=== PATIENT | female | born 1935 | race Two or more races ===

== ENCOUNTER 2020-03-15 23:59 | Inpatient (IN) | payer MEDICARE, MEDICAID ==
[2020-03-16 01:30] VITALS: BP 149/65
[2020-03-16] MEDS ORDERED: HALOPERIDOL 5 MG TABLET PO PRN (02:15)
[2020-03-16] MEDS ORDERED: ZOLPIDEM TARTRATE 10 MG TABLET PO PRN (02:15)
[2020-03-16] MEDS ORDERED: LORazepam 1 MG TABLET PO PRN (02:15)
[2020-03-16] MEDS ORDERED: PNEUMOCOCCAL VACCINE POLYVALENT 0.5 ML VIAL [PPSV23] IM ONE (05:45)
[2020-03-16] MEDS ORDERED: INFLUENZA VIRUS VACCINE QVS 2020-21 (6MO+)/PF 60 MCG/0.5 ML SYRINGE IM ONE (05:45)
[2020-03-16] MEDS ORDERED: DEXTROSE 50%-WATER 25 GM/50 ML SYRINGE IVP PRN (07:45)
[2020-03-16 08:00] VITALS: BP 124/68
[2020-03-16] MEDS ORDERED: PETROLATUM,WHITE 28 GM JELLY TP PRN (08:15)
[2020-03-16] MEDS ORDERED: ALBUTEROL SULFATE HFA 90 MCG/PUFF 8 GM INHALER IH PRN (08:15)
[2020-03-16] MEDS ORDERED: MAG HYDROX/AL HYDROX/SIMETH ES 30 ML SUSPENSION UDCUP PO PRN (08:15)
[2020-03-16] MEDS ORDERED: MAGNESIUM HYDROXIDE SUSPENSION 30 ML UDCUP PO PRN (08:15)
[2020-03-16] MEDS ORDERED: CloNIDine HCL 0.1 MG TABLET PO PRN (08:15)
[2020-03-16] MEDS ORDERED: ONDANSETRON HCL 4 MG TABLET PO PRN (08:15)
[2020-03-16] MEDS ORDERED: BENZOCAINE/MENTHOL LOZENGE PO PRN (08:15)
[2020-03-16] MEDS: METOPROLOL TARTRATE 25 MG TABLET PO SCH ×2 (11:03→17:24)
[2020-03-16] MEDS: POLYETHYLENE GLYCOL 3350 17 GM PACKET PO SCH (11:07)
[2020-03-16] MEDS: MULTIVITAMINS WITH MINERALS, THERAPEUTIC TABLET PO SCH (11:08)
[2020-03-16] MEDS: PANTOPRAZOLE SODIUM 40 MG DR TABLET PO SCH (11:09)
[2020-03-16] MEDS: INSULIN LISPRO 100 UNITS/ML SQ PRN ×2 (11:41→17:27)
[2020-03-16 16:14] VITALS: BP 123/68
[2020-03-16] MEDS ORDERED: ChlorproMAZINE HCL 25 MG TABLET PO PRN (17:00)
[2020-03-16] MEDS ORDERED: TEMAZEPAM 7.5 MG CAPSULE PO PRN (17:00)
[2020-03-16 17:14] LABS: GLUCOMETER DEV NAME(LOC) 3E.I 2; GLUCOSE,POINT OF CARE 179 MG/DL (70-110)
[2020-03-16] MEDS: DIVALPROEX SODIUM 250 MG DR TABLET PO SCH ×2 (17:23→20:38)
[2020-03-16] MEDS: MEMANTINE HCL 5 MG TABLET PO SCH (17:23)
[2020-03-16] MEDS: MetFORMIN HCL 500 MG TABLET PO SCH (17:24)
[2020-03-16] MEDS: RisperiDONE 0.5 MG TABLET PO SCH ×2 (17:24→20:38)
[2020-03-16] MEDS: DONEPEZIL HCL 5 MG TABLET PO SCH (20:38)
[2020-03-16] MEDS: SENNA 187 MG TABLET PO SCH (20:38)
[2020-03-16] MEDS: SIMVASTATIN 20 MG TABLET PO SCH (20:38)
[2020-03-16 21:15] VITALS: BP 137/91
[2020-03-16 21:45] LABS: GLUCOMETER DEV NAME(LOC) 3E.I 2; GLUCOSE,POINT OF CARE 93 MG/DL (70-110)
[2020-03-16] MEDS: LORazepam 0.5 MG TABLET PO PRN (22:18)
[2020-03-16 23:15] VITALS: BP 133/76
[2020-03-17 06:27] LABS: GLUCOMETER DEV NAME(LOC) 3E.I 2; GLUCOSE,POINT OF CARE 219 MG/DL (70-110)
[2020-03-17] MEDS: LEVOTHYROXINE SODIUM 112 MCG TABLET PO SCH (07:00)
[2020-03-17] MEDS: MetFORMIN HCL 500 MG TABLET PO SCH ×2 (07:08→17:06)
[2020-03-17] MEDS: INSULIN LISPRO 100 UNITS/ML SQ PRN ×4 (07:10→19:34)
[2020-03-17 11:00] VITALS: BP 138/88
[2020-03-17 11:26] LABS: GLUCOMETER DEV NAME(LOC) 3E.I 2; GLUCOSE,POINT OF CARE 167 MG/DL (70-110)
[2020-03-17] MEDS: MULTIVITAMINS WITH MINERALS, THERAPEUTIC TABLET PO SCH (11:37)
[2020-03-17] MEDS: DIVALPROEX SODIUM 250 MG DR TABLET PO SCH ×3 (11:38→21:00)
[2020-03-17] MEDS: PANTOPRAZOLE SODIUM 40 MG DR TABLET PO SCH (11:38)
[2020-03-17] MEDS: RisperiDONE 0.5 MG TABLET PO SCH ×3 (11:38→21:00)
[2020-03-17] MEDS: POLYETHYLENE GLYCOL 3350 17 GM PACKET PO SCH (11:39)
[2020-03-17] MEDS: METOPROLOL TARTRATE 25 MG TABLET PO SCH ×2 (11:39→17:06)
[2020-03-17] MEDS: MEMANTINE HCL 5 MG TABLET PO SCH ×2 (11:40→17:06)
[2020-03-17 16:13] VITALS: BP 169/86
[2020-03-17] MEDS: SENNA 187 MG TABLET PO SCH (21:00)
[2020-03-17] MEDS: SIMVASTATIN 20 MG TABLET PO SCH (21:00)
[2020-03-17] MEDS: DONEPEZIL HCL 5 MG TABLET PO SCH (21:00)
[2020-03-17 21:05] LABS: GLUCOMETER DEV NAME(LOC) 3E.I 2; GLUCOSE,POINT OF CARE 178 MG/DL (70-110)
[2020-03-18 05:49] LABS: GLUCOMETER DEV NAME(LOC) 3E.I 2; GLUCOSE,POINT OF CARE 177 MG/DL (70-110)
[2020-03-18 06:05] VITALS: BP 141/82
[2020-03-18] MEDS: LEVOTHYROXINE SODIUM 112 MCG TABLET PO SCH (07:00)
[2020-03-18] MEDS: MetFORMIN HCL 500 MG TABLET PO SCH ×2 (07:06→17:30)
[2020-03-18] MEDS: INSULIN LISPRO 100 UNITS/ML SQ PRN ×2 (07:15→12:16)
[2020-03-18] MEDS: METOPROLOL TARTRATE 25 MG TABLET PO SCH ×2 (08:56→17:40)
[2020-03-18] MEDS: DIVALPROEX SODIUM 250 MG DR TABLET PO SCH ×2 (08:56→17:41)
[2020-03-18] MEDS: MULTIVITAMINS WITH MINERALS, THERAPEUTIC TABLET PO SCH (08:57)
[2020-03-18] MEDS: PANTOPRAZOLE SODIUM 40 MG DR TABLET PO SCH (08:57)
[2020-03-18] MEDS: POLYETHYLENE GLYCOL 3350 17 GM PACKET PO SCH ×2 (08:59→09:00)
[2020-03-18] MEDS: MEMANTINE HCL 5 MG TABLET PO SCH ×3 (08:59→17:39)
[2020-03-18] MEDS: RisperiDONE 0.5 MG TABLET PO SCH ×3 (09:00→21:00)
[2020-03-18 11:44] LABS: GLUCOMETER DEV NAME(LOC) 3E.I 2; GLUCOSE,POINT OF CARE 145 MG/DL (70-110)
[2020-03-18 16:00] VITALS: BP 156/77
[2020-03-18 17:40] LABS: GLUCOMETER DEV NAME(LOC) 3E.I 2; GLUCOSE,POINT OF CARE 136 MG/DL (70-110)
[2020-03-18] MEDS: SENNA 187 MG TABLET PO SCH (21:00)
[2020-03-18] MEDS: DONEPEZIL HCL 5 MG TABLET PO SCH (21:00)
[2020-03-18] MEDS: SIMVASTATIN 20 MG TABLET PO SCH (21:00)
[2020-03-18 21:19] LABS: GLUCOMETER DEV NAME(LOC) 3E.I 2; GLUCOSE,POINT OF CARE 113 MG/DL (70-110)
[2020-03-19] MEDS: MetFORMIN HCL 500 MG TABLET PO SCH ×3 (06:26→17:30)
[2020-03-19] MEDS: LEVOTHYROXINE SODIUM 112 MCG TABLET PO SCH (06:26)
[2020-03-19 06:38] LABS: BASOPHILS % (AUTO) 0.9 % (0.0-2.0); EOSINOPHILS % (AUTO) 1.8 % (1.0-6.0); HEMATOCRIT 37.7 % (36-46); HEMOGLOBIN 12.4 g/dL (12.0-16.0); LYMPHOCYTES # (AUTO) 1.7 K/uL (1.0-4.8); LYMPHOCYTES % (AUTO) 34.5 % (22.0-44.0); MEAN CORPUSCULAR HEMOGLOBIN 28.3 pg (26.0-34.0); MEAN CORPUSCULAR HGB CONC 32.9 G/dL (31.0-37.0); MEAN CORPUSCULAR VOLUME 86 fL (80-100); MONOCYTES # (AUTO) 0.4 K/uL (0.1-1.0); MONOCYTES % (AUTO) 8.2 % (2.0-9.0); NEUTROPHILS # (AUTO) 2.7 K/uL (1.8-7.7); NEUTROPHILS % (AUTO) 54.6 % (40.0-70.0); PLATELET COUNT (AUTO) 302 K/uL (150-450); RED BLOOD CELL COUNT(AUTO) 4.39 MIL/uL (4.00-5.20); RED CELL DISTRIBUTION WIDTH 16.8 % (11.5-14.5)
[2020-03-19 07:45] LABS: ALANINE AMINOTRANSFERASE 14 U/L (12-78); ALBUMIN 3.4 g/dL (3.4-5.0); ALKALINE PHOSPHATASE 79 U/L (46-116); ANION GAP 13 mmol/L (8-16); ASPARTATE AMINOTRANSFERASE 26 U/L (15-37); BILIRUBIN,TOTAL 0.5 mg/dL (0.1-1.0); CALCIUM, TOTAL 9.5 mg/dL (8.8-10.5); CARBON DIOXIDE 27 mmol/L (22-29); CHLORIDE 98 mmol/L (98-107); CHOL/HDL RATIO 2.3 (3.9-5.7); CHOLESTEROL 194 mg/dL (131-200); CREATININE 0.82 mg/dL (0.60-1.30); GLUCOSE,RANDOM 145 mg/dL (70-110); HDL CHOLESTEROL 84 mg/dL (40-60); HEMOGLOBIN A1C 7.1 % (3.8-5.6); LDL CHOL (CALC.) 96 mg/dL (0-130); POTASSIUM 4.3 mmol/L (3.5-5.1); SODIUM SERUM 138 mmol/L (136-145); TOTAL PROTEIN, SERUM 7.3 g/dL (6.4-8.2); TRIGLYCERIDES 68 mg/dL (15-150); UREA NITROGEN, BLOOD 19 mg/dL (7-18)
[2020-03-19 07:50] LABS: GLOMERULAR FILTR. RATE CALC > 60 mL/min (>60)
[2020-03-19 09:02] VITALS: BP 137/71
[2020-03-19] MEDS: RisperiDONE 0.5 MG TABLET PO SCH ×3 (09:16→21:00)
[2020-03-19] MEDS: PANTOPRAZOLE SODIUM 40 MG DR TABLET PO SCH (09:17)
[2020-03-19] MEDS: METOPROLOL TARTRATE 25 MG TABLET PO SCH ×2 (09:17→17:24)
[2020-03-19] MEDS: MULTIVITAMINS WITH MINERALS, THERAPEUTIC TABLET PO SCH (09:17)
[2020-03-19] MEDS: POLYETHYLENE GLYCOL 3350 17 GM PACKET PO SCH (09:18)
[2020-03-19] MEDS: MEMANTINE HCL 5 MG TABLET PO SCH ×2 (09:18→17:24)
[2020-03-19] MEDS: VALPROIC ACID 250 MG/5 ML SYRUP UDCUP PO SCH ×2 (09:27→17:25)
[2020-03-19 11:38] LABS: GLUCOMETER DEV NAME(LOC) 3E.I 2; GLUCOSE,POINT OF CARE 118 MG/DL (70-110)
[2020-03-19] MEDS: LOPERAMIDE HCL 2 MG CAPSULE PO PRN (13:39)
[2020-03-19] MEDS: SIMVASTATIN 20 MG TABLET PO SCH (21:00)
[2020-03-19] MEDS: SENNA 187 MG TABLET PO SCH (21:00)
[2020-03-19] MEDS: DONEPEZIL HCL 5 MG TABLET PO SCH (21:00)
[2020-03-19 21:07] LABS: GLUCOMETER DEV NAME(LOC) 3E.I 2; GLUCOSE,POINT OF CARE 210 MG/DL (70-110)
[2020-03-20] MEDS: MetFORMIN HCL 500 MG TABLET PO SCH ×2 (06:47→17:25)
[2020-03-20] MEDS: LEVOTHYROXINE SODIUM 112 MCG TABLET PO SCH (06:47)
[2020-03-20] MEDS: METOPROLOL TARTRATE 25 MG TABLET PO SCH ×2 (09:45→16:01)
[2020-03-20] MEDS: VALPROIC ACID 250 MG/5 ML SYRUP UDCUP PO SCH ×2 (09:45→16:01)
[2020-03-20] MEDS: MEMANTINE HCL 5 MG TABLET PO SCH ×2 (09:45→16:02)
[2020-03-20] MEDS: MULTIVITAMINS WITH MINERALS, THERAPEUTIC TABLET PO SCH (09:45)
[2020-03-20] MEDS: RisperiDONE 0.5 MG TABLET PO SCH ×3 (09:45→21:08)
[2020-03-20] MEDS: PANTOPRAZOLE SODIUM 40 MG DR TABLET PO SCH (09:45)
[2020-03-20] MEDS: POLYETHYLENE GLYCOL 3350 17 GM PACKET PO SCH (09:47)
[2020-03-20 16:19] LABS: GLUCOMETER DEV NAME(LOC) 3E.I 2; GLUCOSE,POINT OF CARE 141 MG/DL (70-110)
[2020-03-20 16:33] VITALS: BP 153/70
[2020-03-20 16:36] VITALS: BP 153/70
[2020-03-20] MEDS: INSULIN LISPRO 100 UNITS/ML SQ PRN (17:31)
[2020-03-20] MEDS: DONEPEZIL HCL 5 MG TABLET PO SCH (21:08)
[2020-03-20] MEDS: SIMVASTATIN 20 MG TABLET PO SCH (21:09)
[2020-03-20] MEDS: SENNA 187 MG TABLET PO SCH (21:09)
[2020-03-20 21:17] LABS: GLUCOMETER DEV NAME(LOC) 3E.I 2; GLUCOSE,POINT OF CARE 127 MG/DL (70-110)
[2020-03-21] MEDS: MetFORMIN HCL 500 MG TABLET PO SCH ×2 (06:21→17:30)
[2020-03-21] MEDS: LEVOTHYROXINE SODIUM 112 MCG TABLET PO SCH (06:22)
[2020-03-21 08:12] VITALS: BP 147/78
[2020-03-21] MEDS: RisperiDONE 0.5 MG TABLET PO SCH ×3 (08:50→19:56)
[2020-03-21] MEDS: MULTIVITAMINS WITH MINERALS, THERAPEUTIC TABLET PO SCH (08:50)
[2020-03-21] MEDS: PANTOPRAZOLE SODIUM 40 MG DR TABLET PO SCH (08:50)
[2020-03-21] MEDS: VALPROIC ACID 250 MG/5 ML SYRUP UDCUP PO SCH ×2 (08:51→16:03)
[2020-03-21] MEDS: METOPROLOL TARTRATE 25 MG TABLET PO SCH ×2 (08:51→16:08)
[2020-03-21] MEDS: MEMANTINE HCL 5 MG TABLET PO SCH ×2 (08:51→16:02)
[2020-03-21] MEDS: POLYETHYLENE GLYCOL 3350 17 GM PACKET PO SCH (09:00)
[2020-03-21 11:03] LABS: GLUCOMETER DEV NAME(LOC) 3E.I 2; GLUCOSE,POINT OF CARE 257 MG/DL (70-110)
[2020-03-21] MEDS: INSULIN LISPRO 100 UNITS/ML SQ PRN ×3 (11:12→17:19)
[2020-03-21 16:24] VITALS: BP 111/65
[2020-03-21 17:19] LABS: GLUCOMETER DEV NAME(LOC) 3E.I 2; GLUCOSE,POINT OF CARE 164 MG/DL (70-110)
[2020-03-21] MEDS: SIMVASTATIN 20 MG TABLET PO SCH (19:56)
[2020-03-21] MEDS: SENNA 187 MG TABLET PO SCH (19:56)
[2020-03-21] MEDS: DONEPEZIL HCL 5 MG TABLET PO SCH (19:57)
[2020-03-22 05:51] LABS: GLUCOMETER DEV NAME(LOC) 3E.I 2; GLUCOSE,POINT OF CARE 151 MG/DL (70-110)
[2020-03-22] MEDS: MetFORMIN HCL 500 MG TABLET PO SCH ×2 (06:57→17:03)
[2020-03-22] MEDS: LEVOTHYROXINE SODIUM 112 MCG TABLET PO SCH (06:57)
[2020-03-22] MEDS: INSULIN LISPRO 100 UNITS/ML SQ PRN ×4 (07:03→21:02)
[2020-03-22 08:53] VITALS: BP 138/58
[2020-03-22] MEDS: POLYETHYLENE GLYCOL 3350 17 GM PACKET PO SCH (10:22)
[2020-03-22] MEDS: VALPROIC ACID 250 MG/5 ML SYRUP UDCUP PO SCH ×2 (10:22→17:03)
[2020-03-22] MEDS: RisperiDONE 0.5 MG TABLET PO SCH ×3 (10:23→20:41)
[2020-03-22] MEDS: MEMANTINE HCL 5 MG TABLET PO SCH ×2 (10:24→17:04)
[2020-03-22] MEDS: PANTOPRAZOLE SODIUM 40 MG DR TABLET PO SCH (10:24)
[2020-03-22] MEDS: METOPROLOL TARTRATE 25 MG TABLET PO SCH ×2 (10:25→17:04)
[2020-03-22] MEDS: MULTIVITAMINS WITH MINERALS, THERAPEUTIC TABLET PO SCH (10:25)
[2020-03-22 11:31] LABS: GLUCOMETER DEV NAME(LOC) 3E.I 2; GLUCOSE,POINT OF CARE 243 MG/DL (70-110)
[2020-03-22 16:35] VITALS: BP 136/73
[2020-03-22 16:49] LABS: GLUCOMETER DEV NAME(LOC) 3E.I 2; GLUCOSE,POINT OF CARE 279 MG/DL (70-110)
[2020-03-22] MEDS: SIMVASTATIN 20 MG TABLET PO SCH (20:40)
[2020-03-22] MEDS: DONEPEZIL HCL 5 MG TABLET PO SCH (20:40)
[2020-03-22] MEDS: SENNA 187 MG TABLET PO SCH (21:00)
[2020-03-22 21:10] LABS: GLUCOMETER DEV NAME(LOC) 3E.I 2; GLUCOSE,POINT OF CARE 149 MG/DL (70-110)
[2020-03-23 05:34] LABS: GLUCOMETER DEV NAME(LOC) 3E.I 2; GLUCOSE,POINT OF CARE 184 MG/DL (70-110)
[2020-03-23] MEDS: LEVOTHYROXINE SODIUM 112 MCG TABLET PO SCH (06:49)
[2020-03-23] MEDS: MetFORMIN HCL 500 MG TABLET PO SCH ×2 (06:49→16:43)
[2020-03-23] MEDS: INSULIN LISPRO 100 UNITS/ML SQ PRN ×3 (06:54→21:31)
[2020-03-23] MEDS: RisperiDONE 0.5 MG TABLET PO SCH ×3 (09:00→20:30)
[2020-03-23] MEDS: VALPROIC ACID 250 MG/5 ML SYRUP UDCUP PO SCH ×2 (09:00→16:42)
[2020-03-23] MEDS: METOPROLOL TARTRATE 25 MG TABLET PO SCH ×2 (09:00→16:42)
[2020-03-23] MEDS: MEMANTINE HCL 5 MG TABLET PO SCH ×2 (09:00→16:42)
[2020-03-23] MEDS: POLYETHYLENE GLYCOL 3350 17 GM PACKET PO SCH (09:00)
[2020-03-23] MEDS: PANTOPRAZOLE SODIUM 40 MG DR TABLET PO SCH (09:00)
[2020-03-23] MEDS: MULTIVITAMINS WITH MINERALS, THERAPEUTIC TABLET PO SCH (09:00)
[2020-03-23 10:08] VITALS: BP 125/55
[2020-03-23 11:58] LABS: GLUCOMETER DEV NAME(LOC) 3E.I 2; GLUCOSE,POINT OF CARE 253 MG/DL (70-110)
[2020-03-23 16:08] VITALS: BP 145/66
[2020-03-23 16:32] LABS: GLUCOMETER DEV NAME(LOC) 3E.I 2; GLUCOSE,POINT OF CARE 103 MG/DL (70-110)
[2020-03-23] MEDS: LOPERAMIDE HCL 2 MG CAPSULE PO PRN (18:50)
[2020-03-23] MEDS: SENNA 187 MG TABLET PO SCH (20:29)
[2020-03-23] MEDS: SIMVASTATIN 20 MG TABLET PO SCH (20:30)
[2020-03-23] MEDS: DONEPEZIL HCL 5 MG TABLET PO SCH (20:30)
[2020-03-23 21:22] LABS: GLUCOMETER DEV NAME(LOC) 3E.I 2; GLUCOSE,POINT OF CARE 248 MG/DL (70-110)
[2020-03-24 05:33] LABS: GLUCOMETER DEV NAME(LOC) 3E.I 2; GLUCOSE,POINT OF CARE 154 MG/DL (70-110)
[2020-03-24] MEDS: LEVOTHYROXINE SODIUM 112 MCG TABLET PO SCH (06:40)
[2020-03-24] MEDS: MetFORMIN HCL 500 MG TABLET PO SCH ×2 (06:40→16:23)
[2020-03-24] MEDS: INSULIN LISPRO 100 UNITS/ML SQ PRN ×4 (06:41→21:05)
[2020-03-24 10:37] VITALS: BP 140/69
[2020-03-24] MEDS: METOPROLOL TARTRATE 25 MG TABLET PO SCH ×2 (13:39→16:24)
[2020-03-24] MEDS: PANTOPRAZOLE SODIUM 40 MG DR TABLET PO SCH (13:39)
[2020-03-24] MEDS: VALPROIC ACID 250 MG/5 ML SYRUP UDCUP PO SCH ×2 (13:39→16:24)
[2020-03-24] MEDS: MULTIVITAMINS WITH MINERALS, THERAPEUTIC TABLET PO SCH (13:39)
[2020-03-24] MEDS: RisperiDONE 0.5 MG TABLET PO SCH ×3 (13:39→20:17)
[2020-03-24] MEDS: MEMANTINE HCL 5 MG TABLET PO SCH ×2 (13:40→16:24)
[2020-03-24] MEDS: POLYETHYLENE GLYCOL 3350 17 GM PACKET PO SCH (13:40)
[2020-03-24 13:54] LABS: GLUCOMETER DEV NAME(LOC) 3E.I 2; GLUCOSE,POINT OF CARE 150 MG/DL (70-110)
[2020-03-24] MEDS: BACITRACIN 28 GM OINTMENT TP PRN (16:01)
[2020-03-24] MEDS: LOPERAMIDE HCL 2 MG CAPSULE PO PRN ×2 (16:42→19:04)
[2020-03-24 17:10] VITALS: BP 112/67
[2020-03-24 17:27] LABS: GLUCOMETER DEV NAME(LOC) 3E.I 2; GLUCOSE,POINT OF CARE 287 MG/DL (70-110)
[2020-03-24] MEDS: DONEPEZIL HCL 5 MG TABLET PO SCH (20:15)
[2020-03-24] MEDS: SIMVASTATIN 20 MG TABLET PO SCH (20:15)
[2020-03-24] MEDS: SENNA 187 MG TABLET PO SCH (20:18)
[2020-03-24 21:13] LABS: GLUCOMETER DEV NAME(LOC) 3E.I 2; GLUCOSE,POINT OF CARE 252 MG/DL (70-110)
[2020-03-24] MEDS: ZALEPLON 5 MG CAPSULE PO PRN (23:47)
[2020-03-25] MEDS: MetFORMIN HCL 500 MG TABLET PO SCH ×2 (07:03→17:23)
[2020-03-25] MEDS: LEVOTHYROXINE SODIUM 112 MCG TABLET PO SCH (07:03)
[2020-03-25] MEDS: POLYETHYLENE GLYCOL 3350 17 GM PACKET PO SCH (09:11)
[2020-03-25] MEDS: MEMANTINE HCL 5 MG TABLET PO SCH ×2 (09:11→17:22)
[2020-03-25] MEDS: BACITRACIN 28 GM OINTMENT TP PRN (09:11)
[2020-03-25] MEDS: PANTOPRAZOLE SODIUM 40 MG DR TABLET PO SCH (09:11)
[2020-03-25] MEDS: RisperiDONE 0.5 MG TABLET PO SCH ×3 (09:12→20:31)
[2020-03-25] MEDS: VALPROIC ACID 250 MG/5 ML SYRUP UDCUP PO SCH ×2 (09:12→17:21)
[2020-03-25] MEDS: MULTIVITAMINS WITH MINERALS, THERAPEUTIC TABLET PO SCH (09:13)
[2020-03-25] MEDS: METOPROLOL TARTRATE 25 MG TABLET PO SCH ×2 (09:14→17:22)
[2020-03-25 09:30] VITALS: BP 121/60
[2020-03-25 11:49] LABS: GLUCOMETER DEV NAME(LOC) 3EX.; GLUCOSE,POINT OF CARE 231 MG/DL (70-110)
[2020-03-25] MEDS: INSULIN LISPRO 100 UNITS/ML SQ PRN ×3 (11:56→20:57)
[2020-03-25 16:12] VITALS: BP 110/69
[2020-03-25 17:47] LABS: GLUCOMETER DEV NAME(LOC) 3E.I 2; GLUCOSE,POINT OF CARE 180 MG/DL (70-110)
[2020-03-25 18:53] LABS: COVID AG,FIA SOURCE NASAL SWAB
[2020-03-25] MEDS: SIMVASTATIN 20 MG TABLET PO SCH (20:31)
[2020-03-25] MEDS: DONEPEZIL HCL 5 MG TABLET PO SCH (20:31)
[2020-03-25] MEDS: SENNA 187 MG TABLET PO SCH (21:00)
[2020-03-25 21:42] LABS: GLUCOMETER DEV NAME(LOC) 3E.I 2; GLUCOSE,POINT OF CARE 211 MG/DL (70-110)
[2020-03-26 00:35] VITALS: BP 140/76
[2020-03-26] MEDS: LORazepam 0.5 MG TABLET PO PRN (00:39)
[2020-03-26 06:24] VITALS: BP 136/80
[2020-03-26 06:24] LABS: GLUCOMETER DEV NAME(LOC) 3E.I 2; GLUCOSE,POINT OF CARE 164 MG/DL (70-110)
[2020-03-26] MEDS: LEVOTHYROXINE SODIUM 112 MCG TABLET PO SCH (06:53)
[2020-03-26] MEDS: MetFORMIN HCL 500 MG TABLET PO SCH ×2 (06:53→17:13)
[2020-03-26] MEDS: INSULIN LISPRO 100 UNITS/ML SQ PRN ×3 (06:54→21:41)
[2020-03-26 09:00] VITALS: BP 126/67
[2020-03-26] MEDS: MULTIVITAMINS WITH MINERALS, THERAPEUTIC TABLET PO SCH (11:50)
[2020-03-26] MEDS: PANTOPRAZOLE SODIUM 40 MG DR TABLET PO SCH (11:51)
[2020-03-26] MEDS: RisperiDONE 0.5 MG TABLET PO SCH ×3 (11:51→21:20)
[2020-03-26] MEDS: VALPROIC ACID 250 MG/5 ML SYRUP UDCUP PO SCH ×2 (11:52→17:12)
[2020-03-26] MEDS: SIMVASTATIN 20 MG TABLET PO SCH ×2 (11:53→21:19)
[2020-03-26] MEDS: MEMANTINE HCL 5 MG TABLET PO SCH ×2 (11:54→17:13)
[2020-03-26] MEDS: POLYETHYLENE GLYCOL 3350 17 GM PACKET PO SCH (11:54)
[2020-03-26 12:00] LABS: GLUCOMETER DEV NAME(LOC) 3EX.; GLUCOSE,POINT OF CARE 230 MG/DL (70-110)
[2020-03-26] MEDS: METOPROLOL TARTRATE 25 MG TABLET PO SCH ×2 (12:04→17:24)
[2020-03-26] MEDS: SENNA 187 MG TABLET PO SCH (21:00)
[2020-03-26] MEDS: DONEPEZIL HCL 5 MG TABLET PO SCH (21:19)
[2020-03-26 21:33] LABS: GLUCOMETER DEV NAME(LOC) 3E.I 2; GLUCOSE,POINT OF CARE 124 MG/DL (70-110)
[2020-03-26 21:39] LABS: GLUCOMETER DEV NAME(LOC) 3E.I 2; GLUCOSE,POINT OF CARE 212 MG/DL (70-110)
[2020-03-27 06:33] LABS: GLUCOMETER DEV NAME(LOC) 3E.I 2; GLUCOSE,POINT OF CARE 169 MG/DL (70-110)
[2020-03-27] MEDS: LEVOTHYROXINE SODIUM 112 MCG TABLET PO SCH (06:57)
[2020-03-27] MEDS: MetFORMIN HCL 500 MG TABLET PO SCH ×2 (06:57→16:45)
[2020-03-27] MEDS: INSULIN LISPRO 100 UNITS/ML SQ PRN ×3 (07:00→17:30)
[2020-03-27] MEDS: POLYETHYLENE GLYCOL 3350 17 GM PACKET PO SCH (09:00)
[2020-03-27] MEDS: METOPROLOL TARTRATE 25 MG TABLET PO SCH ×2 (09:00→17:06)
[2020-03-27] MEDS: RisperiDONE 0.5 MG TABLET PO SCH ×4 (11:25→20:15)
[2020-03-27] MEDS: MEMANTINE HCL 5 MG TABLET PO SCH ×2 (11:25→16:45)
[2020-03-27] MEDS: VALPROIC ACID 250 MG/5 ML SYRUP UDCUP PO SCH ×2 (11:26→16:45)
[2020-03-27] MEDS: MULTIVITAMINS WITH MINERALS, THERAPEUTIC TABLET PO SCH (11:26)
[2020-03-27] MEDS: PANTOPRAZOLE SODIUM 40 MG DR TABLET PO SCH (11:26)
[2020-03-27 11:35] LABS: GLUCOMETER DEV NAME(LOC) 3E.I 2; GLUCOSE,POINT OF CARE 145 MG/DL (70-110)
[2020-03-27 16:13] VITALS: BP 117/76
[2020-03-27 17:18] LABS: GLUCOMETER DEV NAME(LOC) 3E.I 2; GLUCOSE,POINT OF CARE 224 MG/DL (70-110)
[2020-03-27] MEDS: LOPERAMIDE HCL 2 MG CAPSULE PO PRN ×2 (18:07→22:16)
[2020-03-27] MEDS: DONEPEZIL HCL 5 MG TABLET PO SCH (20:14)
[2020-03-27] MEDS: SIMVASTATIN 20 MG TABLET PO SCH (20:14)
[2020-03-27] MEDS: SENNA 187 MG TABLET PO SCH (20:15)
[2020-03-27 20:20] LABS: GLUCOMETER DEV NAME(LOC) 3E.I 2; GLUCOSE,POINT OF CARE 101 MG/DL (70-110)
[2020-03-27] MEDS: ZALEPLON 5 MG CAPSULE PO PRN (23:51)
[2020-03-27] MEDS: LORazepam 0.5 MG TABLET PO PRN (23:51)
[2020-03-28] MEDS: LEVOTHYROXINE SODIUM 112 MCG TABLET PO SCH (07:06)
[2020-03-28] MEDS: MetFORMIN HCL 500 MG TABLET PO SCH ×2 (07:06→17:19)
[2020-03-28] MEDS: METOPROLOL TARTRATE 25 MG TABLET PO SCH ×2 (08:23→15:54)
[2020-03-28] MEDS: RisperiDONE 0.5 MG TABLET PO SCH ×4 (08:23→20:05)
[2020-03-28] MEDS: MEMANTINE HCL 5 MG TABLET PO SCH ×2 (08:23→15:54)
[2020-03-28] MEDS: VALPROIC ACID 250 MG/5 ML SYRUP UDCUP PO SCH ×2 (08:23→15:53)
[2020-03-28] MEDS: POLYETHYLENE GLYCOL 3350 17 GM PACKET PO SCH (08:24)
[2020-03-28] MEDS: MULTIVITAMINS WITH MINERALS, THERAPEUTIC TABLET PO SCH (08:25)
[2020-03-28] MEDS: LORazepam 0.5 MG TABLET PO PRN (08:27)
[2020-03-28] MEDS: PANTOPRAZOLE SODIUM 40 MG DR TABLET PO SCH (08:27)
[2020-03-28 08:36] VITALS: BP 114/65
[2020-03-28 12:45] LABS: GLUCOMETER DEV NAME(LOC) 3E.I 2; GLUCOSE,POINT OF CARE 204 MG/DL (70-110)
[2020-03-28] MEDS: INSULIN LISPRO 100 UNITS/ML SQ PRN ×2 (12:54→21:15)
[2020-03-28 16:13] VITALS: BP 112/82
[2020-03-28 16:13] LABS: GLUCOMETER DEV NAME(LOC) 3E.I 2; GLUCOSE,POINT OF CARE 136 MG/DL (70-110)
[2020-03-28] MEDS: DONEPEZIL HCL 5 MG TABLET PO SCH (20:05)
[2020-03-28] MEDS: SENNA 187 MG TABLET PO SCH (20:05)
[2020-03-28] MEDS: SIMVASTATIN 20 MG TABLET PO SCH (20:05)
[2020-03-28 21:36] LABS: GLUCOMETER DEV NAME(LOC) 3E.I 2; GLUCOSE,POINT OF CARE 168 MG/DL (70-110)
[2020-03-29 05:45] LABS: GLUCOMETER DEV NAME(LOC) 3E.I 2; GLUCOSE,POINT OF CARE 138 MG/DL (70-110)
[2020-03-29] MEDS: MetFORMIN HCL 500 MG TABLET PO SCH ×2 (07:05→17:21)
[2020-03-29] MEDS: LEVOTHYROXINE SODIUM 112 MCG TABLET PO SCH (07:05)
[2020-03-29 08:21] VITALS: BP 126/86
[2020-03-29] MEDS: MEMANTINE HCL 5 MG TABLET PO SCH ×2 (09:00→17:21)
[2020-03-29] MEDS: PANTOPRAZOLE SODIUM 40 MG DR TABLET PO SCH (09:00)
[2020-03-29] MEDS: MULTIVITAMINS WITH MINERALS, THERAPEUTIC TABLET PO SCH (09:00)
[2020-03-29] MEDS: RisperiDONE 0.5 MG TABLET PO SCH ×4 (09:00→20:59)
[2020-03-29] MEDS: POLYETHYLENE GLYCOL 3350 17 GM PACKET PO SCH (09:00)
[2020-03-29] MEDS: VALPROIC ACID 250 MG/5 ML SYRUP UDCUP PO SCH ×2 (09:00→17:21)
[2020-03-29] MEDS: METOPROLOL TARTRATE 25 MG TABLET PO SCH ×2 (09:00→17:21)
[2020-03-29 11:55] LABS: GLUCOMETER DEV NAME(LOC) 3E.I 2; GLUCOSE,POINT OF CARE 131 MG/DL (70-110)
[2020-03-29 16:04] VITALS: BP 131/80
[2020-03-29] MEDS: INSULIN LISPRO 100 UNITS/ML SQ PRN ×2 (17:28→21:30)
[2020-03-29 17:30] LABS: GLUCOMETER DEV NAME(LOC) 3E.I 2; GLUCOSE,POINT OF CARE 152 MG/DL (70-110)
[2020-03-29] MEDS: SENNA 187 MG TABLET PO SCH (20:59)
[2020-03-29] MEDS: SIMVASTATIN 20 MG TABLET PO SCH (20:59)
[2020-03-29] MEDS: DONEPEZIL HCL 5 MG TABLET PO SCH (20:59)
[2020-03-29 21:26] LABS: GLUCOMETER DEV NAME(LOC) 3E.I 2; GLUCOSE,POINT OF CARE 245 MG/DL (70-110)
[2020-03-30 00:04] VITALS: BP 125/68
[2020-03-30] MEDS: ZALEPLON 5 MG CAPSULE PO PRN (00:08)
[2020-03-30] MEDS: LORazepam 0.5 MG TABLET PO PRN (00:09)
[2020-03-30] MEDS: MetFORMIN HCL 500 MG TABLET PO SCH ×2 (07:01→16:49)
[2020-03-30] MEDS: LEVOTHYROXINE SODIUM 112 MCG TABLET PO SCH (07:01)
[2020-03-30] MEDS: VALPROIC ACID 250 MG/5 ML SYRUP UDCUP PO SCH ×2 (08:49→16:49)
[2020-03-30] MEDS: RisperiDONE 0.5 MG TABLET PO SCH ×4 (08:50→20:50)
[2020-03-30] MEDS: MULTIVITAMINS WITH MINERALS, THERAPEUTIC TABLET PO SCH (08:51)
[2020-03-30] MEDS: PANTOPRAZOLE SODIUM 40 MG DR TABLET PO SCH (08:51)
[2020-03-30] MEDS: METOPROLOL TARTRATE 25 MG TABLET PO SCH ×2 (08:51→16:50)
[2020-03-30] MEDS: MEMANTINE HCL 5 MG TABLET PO SCH ×2 (08:51→16:50)
[2020-03-30] MEDS: POLYETHYLENE GLYCOL 3350 17 GM PACKET PO SCH (09:00)
[2020-03-30 09:27] VITALS: BP 128/72
[2020-03-30] MEDS: INSULIN LISPRO 100 UNITS/ML SQ PRN ×2 (11:30→21:48)
[2020-03-30 12:15] LABS: GLUCOMETER DEV NAME(LOC) 3E.I 2; GLUCOSE,POINT OF CARE 306 MG/DL (70-110)
[2020-03-30 16:16] VITALS: BP 118/77
[2020-03-30 16:33] LABS: GLUCOMETER DEV NAME(LOC) 3E.I 2; GLUCOSE,POINT OF CARE 102 MG/DL (70-110)
[2020-03-30 20:45] LABS: GLUCOMETER DEV NAME(LOC) 3E.I 2; GLUCOSE,POINT OF CARE 145 MG/DL (70-110)
[2020-03-30] MEDS: SIMVASTATIN 20 MG TABLET PO SCH (20:50)
[2020-03-30] MEDS: DONEPEZIL HCL 5 MG TABLET PO SCH (20:50)
[2020-03-30] MEDS: SENNA 187 MG TABLET PO SCH (20:51)
[2020-03-31] MEDS: LORazepam 0.5 MG TABLET PO PRN (00:13)
[2020-03-31] MEDS: ZALEPLON 5 MG CAPSULE PO PRN (00:13)
[2020-03-31 06:06] LABS: GLUCOMETER DEV NAME(LOC) 3E.I 2; GLUCOSE,POINT OF CARE 116 MG/DL (70-110)
[2020-03-31] MEDS: MetFORMIN HCL 500 MG TABLET PO SCH ×2 (06:31→16:24)
[2020-03-31] MEDS: LEVOTHYROXINE SODIUM 112 MCG TABLET PO SCH (06:31)
[2020-03-31 08:15] VITALS: BP 134/82
[2020-03-31] MEDS: MULTIVITAMINS WITH MINERALS, THERAPEUTIC TABLET PO SCH (11:10)
[2020-03-31] MEDS: PANTOPRAZOLE SODIUM 40 MG DR TABLET PO SCH (11:11)
[2020-03-31] MEDS: RisperiDONE 0.5 MG TABLET PO SCH ×4 (11:11→21:32)
[2020-03-31] MEDS: POLYETHYLENE GLYCOL 3350 17 GM PACKET PO SCH (11:12)
[2020-03-31] MEDS: MEMANTINE HCL 5 MG TABLET PO SCH ×2 (11:12→16:24)
[2020-03-31] MEDS: VALPROIC ACID 250 MG/5 ML SYRUP UDCUP PO SCH ×2 (11:12→16:24)
[2020-03-31] MEDS: METOPROLOL TARTRATE 25 MG TABLET PO SCH ×2 (11:13→16:24)
[2020-03-31 11:45] LABS: GLUCOMETER DEV NAME(LOC) 3E.I 2; GLUCOSE,POINT OF CARE 143 MG/DL (70-110)
[2020-03-31] MEDS: INSULIN LISPRO 100 UNITS/ML SQ PRN ×2 (11:54→21:55)
[2020-03-31 16:58] VITALS: BP 105/55
[2020-03-31 17:01] LABS: GLUCOMETER DEV NAME(LOC) 3E.I 2; GLUCOSE,POINT OF CARE 131 MG/DL (70-110)
[2020-03-31] MEDS: SENNA 187 MG TABLET PO SCH (21:00)
[2020-03-31] MEDS: DONEPEZIL HCL 5 MG TABLET PO SCH (21:32)
[2020-03-31] MEDS: SIMVASTATIN 20 MG TABLET PO SCH (21:32)
[2020-03-31 22:02] LABS: GLUCOMETER DEV NAME(LOC) 3E.I 2; GLUCOSE,POINT OF CARE 165 MG/DL (70-110)
[2020-04-01] MEDS: ZALEPLON 5 MG CAPSULE PO PRN (01:08)
[2020-04-01] MEDS: LORazepam 0.5 MG TABLET PO PRN (01:08)
[2020-04-01 06:02] LABS: GLUCOMETER DEV NAME(LOC) 3E.I 2; GLUCOSE,POINT OF CARE 103 MG/DL (70-110)
[2020-04-01] MEDS: MetFORMIN HCL 500 MG TABLET PO SCH ×2 (06:42→17:09)
[2020-04-01] MEDS: LEVOTHYROXINE SODIUM 112 MCG TABLET PO SCH (06:42)
[2020-04-01 08:45] VITALS: BP 142/88
[2020-04-01] MEDS: VALPROIC ACID 250 MG/5 ML SYRUP UDCUP PO SCH ×2 (09:03→17:07)
[2020-04-01] MEDS: METOPROLOL TARTRATE 25 MG TABLET PO SCH ×2 (09:04→17:08)
[2020-04-01] MEDS: PANTOPRAZOLE SODIUM 40 MG DR TABLET PO SCH (09:04)
[2020-04-01] MEDS: POLYETHYLENE GLYCOL 3350 17 GM PACKET PO SCH (09:04)
[2020-04-01] MEDS: RisperiDONE 0.5 MG TABLET PO SCH ×4 (09:04→20:12)
[2020-04-01] MEDS: MULTIVITAMINS WITH MINERALS, THERAPEUTIC TABLET PO SCH (09:05)
[2020-04-01] MEDS: MEMANTINE HCL 5 MG TABLET PO SCH ×2 (09:05→17:08)
[2020-04-01 16:40] VITALS: BP 115/69
[2020-04-01] MEDS: INSULIN LISPRO 100 UNITS/ML SQ PRN ×2 (17:28→21:41)
[2020-04-01 17:31] LABS: GLUCOMETER DEV NAME(LOC) 3E.I 2; GLUCOSE,POINT OF CARE 145 MG/DL (70-110)
[2020-04-01] MEDS: SIMVASTATIN 20 MG TABLET PO SCH (20:12)
[2020-04-01] MEDS: DONEPEZIL HCL 5 MG TABLET PO SCH (20:12)
[2020-04-01 20:26] LABS: GLUCOMETER DEV NAME(LOC) 3E.I 2; GLUCOSE,POINT OF CARE 145 MG/DL (70-110)
[2020-04-01] MEDS: SENNA 187 MG TABLET PO SCH (21:00)
[2020-04-02] MEDS: LORazepam 0.5 MG TABLET PO PRN (02:02)
[2020-04-02] MEDS: ZALEPLON 5 MG CAPSULE PO PRN ×2 (02:02→21:44)
[2020-04-02 06:26] LABS: GLUCOMETER DEV NAME(LOC) 3E.I 2; GLUCOSE,POINT OF CARE 105 MG/DL (70-110)
[2020-04-02] MEDS: MetFORMIN HCL 500 MG TABLET PO SCH ×2 (07:01→16:27)
[2020-04-02] MEDS: LEVOTHYROXINE SODIUM 112 MCG TABLET PO SCH (07:01)
[2020-04-02] MEDS: VALPROIC ACID 250 MG/5 ML SYRUP UDCUP PO SCH ×2 (08:48→16:29)
[2020-04-02] MEDS: POLYETHYLENE GLYCOL 3350 17 GM PACKET PO SCH (08:48)
[2020-04-02] MEDS: METOPROLOL TARTRATE 25 MG TABLET PO SCH ×2 (08:48→16:26)
[2020-04-02] MEDS: MEMANTINE HCL 5 MG TABLET PO SCH ×2 (08:49→16:28)
[2020-04-02 08:50] VITALS: BP 124/59
[2020-04-02] MEDS: PANTOPRAZOLE SODIUM 40 MG DR TABLET PO SCH (08:50)
[2020-04-02] MEDS: MULTIVITAMINS WITH MINERALS, THERAPEUTIC TABLET PO SCH (08:50)
[2020-04-02] MEDS: RisperiDONE 0.5 MG TABLET PO SCH ×4 (08:50→20:21)
[2020-04-02] MEDS: INSULIN LISPRO 100 UNITS/ML SQ PRN ×2 (11:48→20:51)
[2020-04-02 11:50] LABS: GLUCOMETER DEV NAME(LOC) 3EX.; GLUCOSE,POINT OF CARE 182 MG/DL (70-110)
[2020-04-02 16:49] VITALS: BP 110/60
[2020-04-02 16:50] LABS: GLUCOMETER DEV NAME(LOC) 3EX.; GLUCOSE,POINT OF CARE 116 MG/DL (70-110)
[2020-04-02] MEDS: SIMVASTATIN 20 MG TABLET PO SCH (20:20)
[2020-04-02] MEDS: DONEPEZIL HCL 5 MG TABLET PO SCH (20:20)
[2020-04-02] MEDS: SENNA 187 MG TABLET PO SCH (20:37)
[2020-04-02 20:38] LABS: GLUCOMETER DEV NAME(LOC) 3EX.; GLUCOSE,POINT OF CARE 174 MG/DL (70-110)
[2020-04-02] MEDS ORDERED: SIMVASTATIN 20 MG TABLET PO PRN (21:30)
[2020-04-02] MEDS ORDERED: SENNA 187 MG TABLET PO PRN (21:45)
[2020-04-03] MEDS: LORazepam 0.5 MG TABLET PO PRN ×2 (00:25→23:53)
[2020-04-03] MEDS: LEVOTHYROXINE SODIUM 112 MCG TABLET PO SCH (07:01)
[2020-04-03] MEDS: MetFORMIN HCL 500 MG TABLET PO SCH ×2 (07:22→17:30)
[2020-04-03 08:10] VITALS: BP 122/79
[2020-04-03] MEDS: MULTIVITAMINS WITH MINERALS, THERAPEUTIC TABLET PO SCH (09:00)
[2020-04-03] MEDS: METOPROLOL TARTRATE 25 MG TABLET PO SCH ×2 (09:31→16:12)
[2020-04-03] MEDS: VALPROIC ACID 250 MG/5 ML SYRUP UDCUP PO SCH ×2 (09:31→16:12)
[2020-04-03] MEDS: POLYETHYLENE GLYCOL 3350 17 GM PACKET PO SCH (09:31)
[2020-04-03] MEDS: RisperiDONE 0.5 MG TABLET PO SCH ×4 (09:32→20:57)
[2020-04-03] MEDS: MEMANTINE HCL 5 MG TABLET PO SCH ×2 (09:32→16:12)
[2020-04-03] MEDS: PANTOPRAZOLE SODIUM 40 MG DR TABLET PO SCH (09:33)
[2020-04-03 11:15] LABS: GLUCOMETER DEV NAME(LOC) 3EX.; GLUCOSE,POINT OF CARE 152 MG/DL (70-110)
[2020-04-03] MEDS: INSULIN LISPRO 100 UNITS/ML SQ PRN ×3 (11:17→21:10)
[2020-04-03 16:54] LABS: GLUCOMETER DEV NAME(LOC) 3E.I 2; GLUCOSE,POINT OF CARE 185 MG/DL (70-110)
[2020-04-03] MEDS: SIMVASTATIN 20 MG TABLET PO SCH (20:57)
[2020-04-03] MEDS: ZALEPLON 5 MG CAPSULE PO PRN (21:07)
[2020-04-03] MEDS: DONEPEZIL HCL 5 MG TABLET PO SCH (21:13)
[2020-04-03 21:18] LABS: GLUCOMETER DEV NAME(LOC) 3E.I 2; GLUCOSE,POINT OF CARE 158 MG/DL (70-110)
[2020-04-04] VITALS: BP 125/82
[2020-04-04 05:33] LABS: GLUCOMETER DEV NAME(LOC) 3E.I 2; GLUCOSE,POINT OF CARE 102 MG/DL (70-110)
[2020-04-04] MEDS: MetFORMIN HCL 500 MG TABLET PO SCH ×2 (07:03→16:06)
[2020-04-04] MEDS: LEVOTHYROXINE SODIUM 112 MCG TABLET PO SCH (07:03)
[2020-04-04] MEDS: METOPROLOL TARTRATE 25 MG TABLET PO SCH ×2 (09:18→16:07)
[2020-04-04] MEDS: RisperiDONE 0.5 MG TABLET PO SCH ×4 (09:18→20:14)
[2020-04-04] MEDS: MEMANTINE HCL 5 MG TABLET PO SCH ×2 (09:18→16:06)
[2020-04-04] MEDS: VALPROIC ACID 250 MG/5 ML SYRUP UDCUP PO SCH ×2 (09:18→16:06)
[2020-04-04] MEDS: POLYETHYLENE GLYCOL 3350 17 GM PACKET PO SCH (09:19)
[2020-04-04] MEDS: PANTOPRAZOLE SODIUM 40 MG DR TABLET PO SCH (09:20)
[2020-04-04] MEDS: LORazepam 0.5 MG TABLET PO PRN ×2 (09:20→23:36)
[2020-04-04] MEDS: IBUPROFEN 600 MG TABLET PO PRN ×2 (09:21→23:36)
[2020-04-04] MEDS: MULTIVITAMINS WITH MINERALS, THERAPEUTIC TABLET PO SCH (09:21)
[2020-04-04] MEDS: RisperiDONE 0.5 MG TABLET PO PRN ×2 (09:22→23:41)
[2020-04-04] MEDS: INSULIN LISPRO 100 UNITS/ML SQ PRN ×2 (11:55→21:56)
[2020-04-04 12:04] LABS: GLUCOMETER DEV NAME(LOC) 3E.I 2; GLUCOSE,POINT OF CARE 204 MG/DL (70-110)
[2020-04-04 16:39] LABS: GLUCOMETER DEV NAME(LOC) 3EX.; GLUCOSE,POINT OF CARE 113 MG/DL (70-110)
[2020-04-04] MEDS ORDERED: GuaiFENesin/D-METHORPHAN [SUGAR-FREE] 200-20MG/10 ML SYRUP UDCUP PO SCH (20:00)
[2020-04-04] MEDS: GuaiFENesin/D-METHORPHAN [SUGAR-FREE] 200-20MG/10 ML SYRUP UDCUP PO PRN (20:12)
[2020-04-04] MEDS: SIMVASTATIN 20 MG TABLET PO SCH (20:13)
[2020-04-04] MEDS: DONEPEZIL HCL 5 MG TABLET PO SCH (20:14)
[2020-04-04 21:59] LABS: GLUCOMETER DEV NAME(LOC) 3EX.; GLUCOSE,POINT OF CARE 260 MG/DL (70-110)
[2020-04-04] MEDS: ZALEPLON 5 MG CAPSULE PO PRN (22:09)
[2020-04-04 23:37] VITALS: BP 126/83
[2020-04-05 05:47] LABS: GLUCOMETER DEV NAME(LOC) 3E.I 2; GLUCOSE,POINT OF CARE 94 MG/DL (70-110)
[2020-04-05 06:07] VITALS: BP 115/67
[2020-04-05] MEDS: MetFORMIN HCL 500 MG TABLET PO SCH ×2 (07:00→17:30)
[2020-04-05] MEDS: LEVOTHYROXINE SODIUM 112 MCG TABLET PO SCH (07:00)
[2020-04-05 09:00] VITALS: BP 122/68
[2020-04-05] MEDS: POLYETHYLENE GLYCOL 3350 17 GM PACKET PO SCH (09:00)
[2020-04-05 11:41] LABS: GLUCOMETER DEV NAME(LOC) 3E.I 2; GLUCOSE,POINT OF CARE 158 MG/DL (70-110)
[2020-04-05] MEDS: MULTIVITAMINS WITH MINERALS, THERAPEUTIC TABLET PO SCH (11:44)
[2020-04-05] MEDS: PANTOPRAZOLE SODIUM 40 MG DR TABLET PO SCH (11:44)
[2020-04-05] MEDS: VALPROIC ACID 250 MG/5 ML SYRUP UDCUP PO SCH ×2 (11:44→16:26)
[2020-04-05] MEDS: METOPROLOL TARTRATE 25 MG TABLET PO SCH ×2 (11:44→16:26)
[2020-04-05] MEDS: MEMANTINE HCL 5 MG TABLET PO SCH ×2 (11:45→16:27)
[2020-04-05] MEDS: RisperiDONE 0.5 MG TABLET PO SCH ×4 (11:45→20:31)
[2020-04-05] MEDS: INSULIN LISPRO 100 UNITS/ML SQ PRN ×2 (11:56→17:22)
[2020-04-05 16:03] VITALS: BP 119/78
[2020-04-05 16:51] LABS: GLUCOMETER DEV NAME(LOC) 3E.I 2; GLUCOSE,POINT OF CARE 150 MG/DL (70-110)
[2020-04-05] MEDS: SIMVASTATIN 20 MG TABLET PO SCH (20:31)
[2020-04-05] MEDS: DONEPEZIL HCL 5 MG TABLET PO SCH (20:32)
[2020-04-06] MEDS: MetFORMIN HCL 500 MG TABLET PO SCH ×2 (07:08→17:28)
[2020-04-06] MEDS: LEVOTHYROXINE SODIUM 112 MCG TABLET PO SCH (07:08)
[2020-04-06 08:34] VITALS: BP 141/70
[2020-04-06] MEDS: POLYETHYLENE GLYCOL 3350 17 GM PACKET PO SCH (09:00)
[2020-04-06] MEDS: RisperiDONE 0.5 MG TABLET PO SCH ×4 (09:00→20:58)
[2020-04-06] MEDS: PANTOPRAZOLE SODIUM 40 MG DR TABLET PO SCH (09:00)
[2020-04-06] MEDS: MULTIVITAMINS WITH MINERALS, THERAPEUTIC TABLET PO SCH (09:00)
[2020-04-06] MEDS: METOPROLOL TARTRATE 25 MG TABLET PO SCH ×2 (09:00→16:31)
[2020-04-06] MEDS: MEMANTINE HCL 5 MG TABLET PO SCH ×2 (09:00→16:31)
[2020-04-06] MEDS: VALPROIC ACID 250 MG/5 ML SYRUP UDCUP PO SCH ×2 (09:00→16:31)
[2020-04-06 11:15] LABS: GLUCOMETER DEV NAME(LOC) 3E.I 2; GLUCOSE,POINT OF CARE 172 MG/DL (70-110)
[2020-04-06] MEDS: INSULIN LISPRO 100 UNITS/ML SQ PRN ×2 (11:47→21:23)
[2020-04-06 16:30] VITALS: BP 116/68
[2020-04-06 17:36] LABS: GLUCOMETER DEV NAME(LOC) 3E.I 2; GLUCOSE,POINT OF CARE 125 MG/DL (70-110)
[2020-04-06] MEDS: GuaiFENesin/D-METHORPHAN [SUGAR-FREE] 200-20MG/10 ML SYRUP UDCUP PO PRN (20:18)
[2020-04-06 20:48] LABS: GLUCOMETER DEV NAME(LOC) 3E.I 2; GLUCOSE,POINT OF CARE 189 MG/DL (70-110)
[2020-04-06] MEDS: DONEPEZIL HCL 5 MG TABLET PO SCH (20:58)
[2020-04-06] MEDS: SIMVASTATIN 20 MG TABLET PO SCH (20:59)
[2020-04-07 05:23] LABS: GLUCOMETER DEV NAME(LOC) 3E.I 2; GLUCOSE,POINT OF CARE 95 MG/DL (70-110)
[2020-04-07] MEDS: LEVOTHYROXINE SODIUM 112 MCG TABLET PO SCH (07:00)
[2020-04-07] MEDS: MetFORMIN HCL 500 MG TABLET PO SCH ×2 (07:30→17:18)
[2020-04-07 08:52] VITALS: BP 121/77
[2020-04-07] MEDS: POLYETHYLENE GLYCOL 3350 17 GM PACKET PO SCH (09:00)
[2020-04-07] MEDS: METOPROLOL TARTRATE 25 MG TABLET PO SCH ×2 (09:00→17:18)
[2020-04-07] MEDS: RisperiDONE 0.5 MG TABLET PO SCH ×4 (09:00→20:58)
[2020-04-07] MEDS: MEMANTINE HCL 5 MG TABLET PO SCH ×2 (09:00→17:18)
[2020-04-07] MEDS: MULTIVITAMINS WITH MINERALS, THERAPEUTIC TABLET PO SCH (09:00)
[2020-04-07] MEDS: VALPROIC ACID 250 MG/5 ML SYRUP UDCUP PO SCH ×2 (09:00→17:18)
[2020-04-07] MEDS: PANTOPRAZOLE SODIUM 40 MG DR TABLET PO SCH (09:00)
[2020-04-07] MEDS: INSULIN LISPRO 100 UNITS/ML SQ PRN ×2 (11:10→17:21)
[2020-04-07 11:11] LABS: GLUCOMETER DEV NAME(LOC) 3E.I 2; GLUCOSE,POINT OF CARE 216 MG/DL (70-110)
[2020-04-07 16:00] VITALS: BP 116/79
[2020-04-07 17:25] LABS: GLUCOMETER DEV NAME(LOC) 3E.I 2; GLUCOSE,POINT OF CARE 142 MG/DL (70-110)
[2020-04-07] MEDS: DONEPEZIL HCL 5 MG TABLET PO SCH (20:57)
[2020-04-07] MEDS: SIMVASTATIN 20 MG TABLET PO SCH (20:58)
[2020-04-07 21:20] LABS: GLUCOMETER DEV NAME(LOC) 3E.I 2; GLUCOSE,POINT OF CARE 88 MG/DL (70-110)
[2020-04-08 00:30] VITALS: BP 123/66
[2020-04-08] MEDS: LORazepam 0.5 MG TABLET PO PRN (00:40)
[2020-04-08] MEDS: ZALEPLON 5 MG CAPSULE PO PRN (00:40)
[2020-04-08] MEDS: ACETAMINOPHEN 325 MG TABLET PO PRN (00:56)
[2020-04-08 05:42] LABS: GLUCOMETER DEV NAME(LOC) 3E.I 2; GLUCOSE,POINT OF CARE 90 MG/DL (70-110)
[2020-04-08] MEDS: LEVOTHYROXINE SODIUM 112 MCG TABLET PO SCH (07:03)
[2020-04-08] MEDS: MetFORMIN HCL 500 MG TABLET PO SCH ×2 (07:03→16:46)
[2020-04-08 08:10] VITALS: BP 116/74
[2020-04-08] MEDS: MULTIVITAMINS WITH MINERALS, THERAPEUTIC TABLET PO SCH (10:27)
[2020-04-08] MEDS: POLYETHYLENE GLYCOL 3350 17 GM PACKET PO SCH (10:28)
[2020-04-08] MEDS: PANTOPRAZOLE SODIUM 40 MG DR TABLET PO SCH (10:28)
[2020-04-08] MEDS: RisperiDONE 0.5 MG TABLET PO SCH ×4 (10:28→22:35)
[2020-04-08] MEDS: VALPROIC ACID 250 MG/5 ML SYRUP UDCUP PO SCH ×2 (10:28→16:40)
[2020-04-08] MEDS: METOPROLOL TARTRATE 25 MG TABLET PO SCH ×2 (10:28→16:40)
[2020-04-08] MEDS: MEMANTINE HCL 5 MG TABLET PO SCH ×2 (10:30→16:42)
[2020-04-08] MEDS: INSULIN LISPRO 100 UNITS/ML SQ PRN (12:17)
[2020-04-08 12:23] LABS: GLUCOMETER DEV NAME(LOC) 3E.I 2; GLUCOSE,POINT OF CARE 135 MG/DL (70-110)
[2020-04-08 16:50] LABS: GLUCOMETER DEV NAME(LOC) 3E.I 2; GLUCOSE,POINT OF CARE 101 MG/DL (70-110)
[2020-04-08 16:53] VITALS: BP 124/62
[2020-04-08 21:19] LABS: GLUCOMETER DEV NAME(LOC) 3E.I 2; GLUCOSE,POINT OF CARE 133 MG/DL (70-110)
[2020-04-08] MEDS: DONEPEZIL HCL 5 MG TABLET PO SCH (22:35)
[2020-04-08] MEDS: SIMVASTATIN 20 MG TABLET PO SCH (22:35)
[2020-04-09] MEDS: LORazepam 0.5 MG TABLET PO PRN (06:27)
[2020-04-09] MEDS: LEVOTHYROXINE SODIUM 112 MCG TABLET PO SCH (06:28)
[2020-04-09] MEDS: MetFORMIN HCL 500 MG TABLET PO SCH ×2 (06:31→17:19)
[2020-04-09 06:41] LABS: GLUCOMETER DEV NAME(LOC) 3E.I 2; GLUCOSE,POINT OF CARE 113 MG/DL (70-110)
[2020-04-09 08:42] VITALS: BP 165/57
[2020-04-09] MEDS: POLYETHYLENE GLYCOL 3350 17 GM PACKET PO SCH (09:00)
[2020-04-09] MEDS: RisperiDONE 0.5 MG TABLET PO SCH ×4 (10:13→20:22)
[2020-04-09] MEDS: MULTIVITAMINS WITH MINERALS, THERAPEUTIC TABLET PO SCH (10:13)
[2020-04-09] MEDS: METOPROLOL TARTRATE 25 MG TABLET PO SCH ×2 (10:13→17:19)
[2020-04-09] MEDS: VALPROIC ACID 250 MG/5 ML SYRUP UDCUP PO SCH ×2 (10:13→17:19)
[2020-04-09] MEDS: PANTOPRAZOLE SODIUM 40 MG DR TABLET PO SCH (10:13)
[2020-04-09] MEDS: MEMANTINE HCL 5 MG TABLET PO SCH ×2 (10:13→17:19)
[2020-04-09] MEDS: INSULIN LISPRO 100 UNITS/ML SQ PRN ×2 (11:42→20:29)
[2020-04-09 11:47] LABS: GLUCOMETER DEV NAME(LOC) 3E.I 2; GLUCOSE,POINT OF CARE 227 MG/DL (70-110)
[2020-04-09 16:08] VITALS: BP 130/69
[2020-04-09 17:26] LABS: GLUCOMETER DEV NAME(LOC) 3E.I 2; GLUCOSE,POINT OF CARE 128 MG/DL (70-110)
[2020-04-09] MEDS: SIMVASTATIN 20 MG TABLET PO SCH (20:22)
[2020-04-09] MEDS: DONEPEZIL HCL 5 MG TABLET PO SCH (20:22)
[2020-04-09 21:01] LABS: GLUCOMETER DEV NAME(LOC) 3E.I 2; GLUCOSE,POINT OF CARE 182 MG/DL (70-110)
[2020-04-10] MEDS: LORazepam 0.5 MG TABLET PO PRN (04:26)
[2020-04-10 06:32] LABS: GLUCOMETER DEV NAME(LOC) 3E.I 2; GLUCOSE,POINT OF CARE 188 MG/DL (70-110)
[2020-04-10] MEDS: MetFORMIN HCL 500 MG TABLET PO SCH ×2 (06:46→19:14)
[2020-04-10] MEDS: LEVOTHYROXINE SODIUM 112 MCG TABLET PO SCH (06:46)
[2020-04-10] MEDS: INSULIN LISPRO 100 UNITS/ML SQ PRN ×3 (06:48→20:37)
[2020-04-10 08:05] VITALS: BP 127/69
[2020-04-10] MEDS: VALPROIC ACID 250 MG/5 ML SYRUP UDCUP PO SCH ×2 (08:27→16:11)
[2020-04-10] MEDS: MULTIVITAMINS WITH MINERALS, THERAPEUTIC TABLET PO SCH (08:27)
[2020-04-10] MEDS: POLYETHYLENE GLYCOL 3350 17 GM PACKET PO SCH (08:27)
[2020-04-10] MEDS: MEMANTINE HCL 5 MG TABLET PO SCH ×2 (08:27→16:11)
[2020-04-10] MEDS: PANTOPRAZOLE SODIUM 40 MG DR TABLET PO SCH (08:27)
[2020-04-10] MEDS: METOPROLOL TARTRATE 25 MG TABLET PO SCH ×2 (08:27→16:11)
[2020-04-10] MEDS: RisperiDONE 0.5 MG TABLET PO SCH ×4 (08:27→20:00)
[2020-04-10 11:58] LABS: GLUCOMETER DEV NAME(LOC) 3E.I 2; GLUCOSE,POINT OF CARE 140 MG/DL (70-110)
[2020-04-10 16:08] VITALS: BP 121/77
[2020-04-10 16:23] LABS: COVID AG,FIA SOURCE NASOPHARYNGEAL
[2020-04-10] MEDS: SIMVASTATIN 20 MG TABLET PO SCH (20:00)
[2020-04-10] MEDS: DONEPEZIL HCL 5 MG TABLET PO SCH (20:00)
[2020-04-10 20:10] LABS: GLUCOMETER DEV NAME(LOC) 3E.I 2; GLUCOSE,POINT OF CARE 198 MG/DL (70-110)
[2020-04-11] MEDS: LORazepam 0.5 MG TABLET PO PRN ×2 (03:07→23:48)
[2020-04-11 05:30] LABS: GLUCOMETER DEV NAME(LOC) 3E.I 2; GLUCOSE,POINT OF CARE 159 MG/DL (70-110)
[2020-04-11] MEDS: MetFORMIN HCL 500 MG TABLET PO SCH ×2 (06:53→17:30)
[2020-04-11] MEDS: LEVOTHYROXINE SODIUM 112 MCG TABLET PO SCH (06:53)
[2020-04-11] MEDS: INSULIN LISPRO 100 UNITS/ML SQ PRN ×2 (06:55→12:09)
[2020-04-11 08:45] VITALS: BP 138/97
[2020-04-11] MEDS: METOPROLOL TARTRATE 25 MG TABLET PO SCH ×2 (09:26→16:00)
[2020-04-11] MEDS: MULTIVITAMINS WITH MINERALS, THERAPEUTIC TABLET PO SCH (09:26)
[2020-04-11] MEDS: PANTOPRAZOLE SODIUM 40 MG DR TABLET PO SCH (09:26)
[2020-04-11] MEDS: RisperiDONE 0.5 MG TABLET PO SCH ×4 (09:26→21:03)
[2020-04-11] MEDS: MEMANTINE HCL 5 MG TABLET PO SCH ×2 (09:26→16:00)
[2020-04-11] MEDS: POLYETHYLENE GLYCOL 3350 17 GM PACKET PO SCH (09:27)
[2020-04-11] MEDS: VALPROIC ACID 250 MG/5 ML SYRUP UDCUP PO SCH ×2 (09:27→16:00)
[2020-04-11 11:28] LABS: GLUCOMETER DEV NAME(LOC) 3E.I 2; GLUCOSE,POINT OF CARE 151 MG/DL (70-110)
[2020-04-11 16:01] VITALS: BP 128/77
[2020-04-11 17:15] LABS: GLUCOMETER DEV NAME(LOC) 3E.I 2; GLUCOSE,POINT OF CARE 98 MG/DL (70-110)
[2020-04-11] MEDS: SIMVASTATIN 20 MG TABLET PO SCH (21:03)
[2020-04-11] MEDS: DONEPEZIL HCL 5 MG TABLET PO SCH (21:04)
[2020-04-11] MEDS: ZALEPLON 5 MG CAPSULE PO PRN (21:20)
[2020-04-12 06:03] LABS: GLUCOMETER DEV NAME(LOC) 3E.I 2; GLUCOSE,POINT OF CARE 135 MG/DL (70-110)
[2020-04-12] MEDS: MetFORMIN HCL 500 MG TABLET PO SCH ×2 (06:29→16:49)
[2020-04-12] MEDS: LEVOTHYROXINE SODIUM 112 MCG TABLET PO SCH (06:30)
[2020-04-12] MEDS: INSULIN LISPRO 100 UNITS/ML SQ PRN ×3 (06:46→21:19)
[2020-04-12] MEDS: POLYETHYLENE GLYCOL 3350 17 GM PACKET PO SCH ×2 (09:00→09:36)
[2020-04-12 09:15] VITALS: BP 135/102
[2020-04-12] MEDS: MULTIVITAMINS WITH MINERALS, THERAPEUTIC TABLET PO SCH (09:35)
[2020-04-12] MEDS: VALPROIC ACID 250 MG/5 ML SYRUP UDCUP PO SCH ×2 (09:35→16:47)
[2020-04-12] MEDS: MEMANTINE HCL 5 MG TABLET PO SCH ×2 (09:35→16:47)
[2020-04-12] MEDS: METOPROLOL TARTRATE 25 MG TABLET PO SCH ×2 (09:35→16:47)
[2020-04-12] MEDS: RisperiDONE 0.5 MG TABLET PO SCH ×4 (09:35→21:15)
[2020-04-12] MEDS: PANTOPRAZOLE SODIUM 40 MG DR TABLET PO SCH (09:35)
[2020-04-12 11:10] LABS: GLUCOMETER DEV NAME(LOC) 3E.I 2; GLUCOSE,POINT OF CARE 165 MG/DL (70-110)
[2020-04-12 16:08] VITALS: BP 128/95
[2020-04-12 16:57] LABS: GLUCOMETER DEV NAME(LOC) 3E.I 2; GLUCOSE,POINT OF CARE 120 MG/DL (70-110)
[2020-04-12] MEDS: SIMVASTATIN 20 MG TABLET PO SCH (21:15)
[2020-04-12] MEDS: DONEPEZIL HCL 5 MG TABLET PO SCH (21:15)
[2020-04-12] MEDS: LORazepam 0.5 MG TABLET PO PRN (21:17)
[2020-04-12 21:26] LABS: GLUCOMETER DEV NAME(LOC) 3E.I 2; GLUCOSE,POINT OF CARE 220 MG/DL (70-110)
[2020-04-13] MEDS: ZALEPLON 5 MG CAPSULE PO PRN (01:23)
[2020-04-13] MEDS: LORazepam 0.5 MG TABLET PO PRN (01:23)
[2020-04-13 05:46] LABS: GLUCOMETER DEV NAME(LOC) 3E.I 2; GLUCOSE,POINT OF CARE 119 MG/DL (70-110)
[2020-04-13] MEDS: MetFORMIN HCL 500 MG TABLET PO SCH ×2 (06:55→17:05)
[2020-04-13] MEDS: LEVOTHYROXINE SODIUM 112 MCG TABLET PO SCH (06:56)
[2020-04-13] MEDS: METOPROLOL TARTRATE 25 MG TABLET PO SCH ×2 (08:42→17:05)
[2020-04-13] MEDS: RisperiDONE 0.5 MG TABLET PO SCH ×4 (08:42→21:00)
[2020-04-13] MEDS: PANTOPRAZOLE SODIUM 40 MG DR TABLET PO SCH (08:42)
[2020-04-13] MEDS: POLYETHYLENE GLYCOL 3350 17 GM PACKET PO SCH (08:43)
[2020-04-13] MEDS: MULTIVITAMINS WITH MINERALS, THERAPEUTIC TABLET PO SCH (08:43)
[2020-04-13] MEDS: VALPROIC ACID 250 MG/5 ML SYRUP UDCUP PO SCH ×2 (08:44→17:04)
[2020-04-13] MEDS: MEMANTINE HCL 5 MG TABLET PO SCH ×2 (08:45→17:05)
[2020-04-13 09:11] VITALS: BP 146/81
[2020-04-13] MEDS: INSULIN LISPRO 100 UNITS/ML SQ PRN ×2 (11:42→21:44)
[2020-04-13 11:45] LABS: GLUCOMETER DEV NAME(LOC) 3E.I 2; GLUCOSE,POINT OF CARE 303 MG/DL (70-110)
[2020-04-13 16:21] VITALS: BP 127/78
[2020-04-13 17:30] LABS: GLUCOMETER DEV NAME(LOC) 3E.I 2; GLUCOSE,POINT OF CARE 92 MG/DL (70-110)
[2020-04-13] MEDS: LOPERAMIDE HCL 2 MG CAPSULE PO PRN (17:38)
[2020-04-13] MEDS: DONEPEZIL HCL 5 MG TABLET PO SCH (21:00)
[2020-04-13] MEDS: SIMVASTATIN 20 MG TABLET PO SCH (21:00)
[2020-04-13 21:19] LABS: GLUCOMETER DEV NAME(LOC) 3E.I 2; GLUCOSE,POINT OF CARE 152 MG/DL (70-110)
[2020-04-14] MEDS: ZALEPLON 5 MG CAPSULE PO PRN (00:33)
[2020-04-14] MEDS: LORazepam 0.5 MG TABLET PO PRN (00:33)
[2020-04-14 06:12] LABS: GLUCOMETER DEV NAME(LOC) 3E.I 2; GLUCOSE,POINT OF CARE 111 MG/DL (70-110)
[2020-04-14] MEDS: MetFORMIN HCL 500 MG TABLET PO SCH ×2 (06:35→16:31)
[2020-04-14] MEDS: LEVOTHYROXINE SODIUM 112 MCG TABLET PO SCH (06:35)
[2020-04-14 09:36] VITALS: BP 114/53
[2020-04-14] MEDS: MULTIVITAMINS WITH MINERALS, THERAPEUTIC TABLET PO SCH (10:35)
[2020-04-14] MEDS: POLYETHYLENE GLYCOL 3350 17 GM PACKET PO SCH (10:36)
[2020-04-14] MEDS: METOPROLOL TARTRATE 25 MG TABLET PO SCH ×2 (10:36→16:31)
[2020-04-14] MEDS: RisperiDONE 0.5 MG TABLET PO SCH ×4 (10:37→20:46)
[2020-04-14] MEDS: PANTOPRAZOLE SODIUM 40 MG DR TABLET PO SCH (10:38)
[2020-04-14] MEDS: MEMANTINE HCL 5 MG TABLET PO SCH ×2 (10:38→16:31)
[2020-04-14] MEDS: VALPROIC ACID 250 MG/5 ML SYRUP UDCUP PO SCH ×2 (10:38→16:30)
[2020-04-14 11:34] LABS: GLUCOMETER DEV NAME(LOC) 3E.I 2; GLUCOSE,POINT OF CARE 181 MG/DL (70-110)
[2020-04-14] MEDS: INSULIN LISPRO 100 UNITS/ML SQ PRN ×2 (11:45→17:18)
[2020-04-14 16:56] LABS: GLUCOMETER DEV NAME(LOC) 3E.I 2; GLUCOSE,POINT OF CARE 189 MG/DL (70-110)
[2020-04-14 17:10] VITALS: BP 126/65
[2020-04-14] MEDS: SIMVASTATIN 20 MG TABLET PO SCH (20:46)
[2020-04-14] MEDS: DONEPEZIL HCL 5 MG TABLET PO SCH (20:46)
[2020-04-14 21:27] LABS: GLUCOMETER DEV NAME(LOC) 3E.I 2; GLUCOSE,POINT OF CARE 75 MG/DL (70-110)
[2020-04-15 06:00] LABS: GLUCOMETER DEV NAME(LOC) 3E.I 2; GLUCOSE,POINT OF CARE 104 MG/DL (70-110)
[2020-04-15] MEDS: INSULIN LISPRO 100 UNITS/ML SQ PRN ×3 (06:51→21:35)
[2020-04-15] MEDS: LEVOTHYROXINE SODIUM 112 MCG TABLET PO SCH (06:51)
[2020-04-15] MEDS: MetFORMIN HCL 500 MG TABLET PO SCH ×2 (06:51→16:52)
[2020-04-15 08:10] VITALS: BP 134/74
[2020-04-15] MEDS: POLYETHYLENE GLYCOL 3350 17 GM PACKET PO SCH (09:00)
[2020-04-15] MEDS: RisperiDONE 0.5 MG TABLET PO SCH ×4 (09:38→20:39)
[2020-04-15] MEDS: MEMANTINE HCL 5 MG TABLET PO SCH ×2 (09:38→16:52)
[2020-04-15] MEDS: VALPROIC ACID 250 MG/5 ML SYRUP UDCUP PO SCH ×2 (09:38→16:52)
[2020-04-15] MEDS: METOPROLOL TARTRATE 25 MG TABLET PO SCH ×2 (09:38→16:52)
[2020-04-15] MEDS: PANTOPRAZOLE SODIUM 40 MG DR TABLET PO SCH (09:40)
[2020-04-15] MEDS: MULTIVITAMINS WITH MINERALS, THERAPEUTIC TABLET PO SCH (09:40)
[2020-04-15 11:50] LABS: GLUCOMETER DEV NAME(LOC) 3E.I 2; GLUCOSE,POINT OF CARE 110 MG/DL (70-110)
[2020-04-15 16:04] VITALS: BP 120/80
[2020-04-15 17:51] LABS: GLUCOMETER DEV NAME(LOC) 3E.I 2; GLUCOSE,POINT OF CARE 114 MG/DL (70-110)
[2020-04-15] MEDS: SIMVASTATIN 20 MG TABLET PO SCH (20:38)
[2020-04-15] MEDS: DONEPEZIL HCL 5 MG TABLET PO SCH (20:39)
[2020-04-15] MEDS: ZALEPLON 5 MG CAPSULE PO PRN (20:50)
[2020-04-15 21:01] LABS: GLUCOMETER DEV NAME(LOC) 3E.I 2; GLUCOSE,POINT OF CARE 187 MG/DL (70-110)
[2020-04-16 00:50] VITALS: BP 109/66
[2020-04-16] MEDS: IBUPROFEN 600 MG TABLET PO PRN (00:51)
[2020-04-16] MEDS: LORazepam 0.5 MG TABLET PO PRN ×2 (00:51→23:45)
[2020-04-16] MEDS: LOPERAMIDE HCL 2 MG CAPSULE PO PRN (02:50)
[2020-04-16] MEDS: LEVOTHYROXINE SODIUM 112 MCG TABLET PO SCH (06:48)
[2020-04-16] MEDS: MetFORMIN HCL 500 MG TABLET PO SCH ×2 (06:49→16:34)
[2020-04-16 08:00] VITALS: BP 111/62
[2020-04-16] MEDS: MULTIVITAMINS WITH MINERALS, THERAPEUTIC TABLET PO SCH (09:00)
[2020-04-16] MEDS: POLYETHYLENE GLYCOL 3350 17 GM PACKET PO SCH (09:00)
[2020-04-16] MEDS: PANTOPRAZOLE SODIUM 40 MG DR TABLET PO SCH (09:01)
[2020-04-16] MEDS: METOPROLOL TARTRATE 25 MG TABLET PO SCH ×2 (09:01→16:53)
[2020-04-16] MEDS: RisperiDONE 0.5 MG TABLET PO SCH ×4 (09:01→20:59)
[2020-04-16] MEDS: VALPROIC ACID 250 MG/5 ML SYRUP UDCUP PO SCH ×2 (09:01→16:34)
[2020-04-16] MEDS: MEMANTINE HCL 5 MG TABLET PO SCH ×2 (09:01→16:34)
[2020-04-16] MEDS: INSULIN LISPRO 100 UNITS/ML SQ PRN (12:50)
[2020-04-16 13:01] LABS: GLUCOMETER DEV NAME(LOC) 3E.I 2; GLUCOSE,POINT OF CARE 259 MG/DL (70-110)
[2020-04-16 16:10] VITALS: BP 102/58
[2020-04-16 16:59] LABS: GLUCOMETER DEV NAME(LOC) 3E.I 2; GLUCOSE,POINT OF CARE 110 MG/DL (70-110)
[2020-04-16] MEDS: DONEPEZIL HCL 5 MG TABLET PO SCH (20:58)
[2020-04-16] MEDS: SIMVASTATIN 20 MG TABLET PO SCH (20:58)
[2020-04-16 21:28] LABS: GLUCOMETER DEV NAME(LOC) 3E.I 2; GLUCOSE,POINT OF CARE 155 MG/DL (70-110)
[2020-04-16] MEDS: ZALEPLON 5 MG CAPSULE PO PRN (23:45)
[2020-04-17 05:55] LABS: GLUCOMETER DEV NAME(LOC) 3E.I 2; GLUCOSE,POINT OF CARE 132 MG/DL (70-110)
[2020-04-17] MEDS: LEVOTHYROXINE SODIUM 112 MCG TABLET PO SCH (06:35)
[2020-04-17] MEDS: MetFORMIN HCL 500 MG TABLET PO SCH ×2 (06:36→17:50)
[2020-04-17 08:58] VITALS: BP 139/77
[2020-04-17] MEDS: POLYETHYLENE GLYCOL 3350 17 GM PACKET PO SCH (09:00)
[2020-04-17] MEDS: VALPROIC ACID 250 MG/5 ML SYRUP UDCUP PO SCH ×2 (09:21→17:51)
[2020-04-17] MEDS: MEMANTINE HCL 5 MG TABLET PO SCH ×2 (09:21→17:51)
[2020-04-17] MEDS: METOPROLOL TARTRATE 25 MG TABLET PO SCH ×2 (09:22→18:01)
[2020-04-17] MEDS: MULTIVITAMINS WITH MINERALS, THERAPEUTIC TABLET PO SCH (09:22)
[2020-04-17] MEDS: RisperiDONE 0.5 MG TABLET PO SCH ×4 (09:22→20:20)
[2020-04-17] MEDS: PANTOPRAZOLE SODIUM 40 MG DR TABLET PO SCH (09:23)
[2020-04-17] MEDS: LOPERAMIDE HCL 2 MG CAPSULE PO PRN (11:30)
[2020-04-17 12:00] LABS: GLUCOMETER DEV NAME(LOC) 3EX.; GLUCOSE,POINT OF CARE 160 MG/DL (70-110)
[2020-04-17] MEDS: INSULIN LISPRO 100 UNITS/ML SQ PRN ×2 (12:03→21:11)
[2020-04-17 15:57] LABS: COVID AG,FIA SOURCE NASOPHARYNGEAL
[2020-04-17 18:01] VITALS: BP 143/76
[2020-04-17] MEDS: SIMVASTATIN 20 MG TABLET PO SCH (20:20)
[2020-04-17] MEDS: DONEPEZIL HCL 5 MG TABLET PO SCH (20:21)
[2020-04-17 20:33] LABS: GLUCOMETER DEV NAME(LOC) 3EX.; GLUCOSE,POINT OF CARE 199 MG/DL (70-110)
[2020-04-18 05:40] LABS: GLUCOMETER DEV NAME(LOC) 3E.I 2; GLUCOSE,POINT OF CARE 95 MG/DL (70-110)
[2020-04-18] MEDS: MetFORMIN HCL 500 MG TABLET PO SCH ×2 (07:16→16:51)
[2020-04-18] MEDS: LEVOTHYROXINE SODIUM 112 MCG TABLET PO SCH (07:16)
[2020-04-18 08:49] VITALS: BP 140/73
[2020-04-18] MEDS: POLYETHYLENE GLYCOL 3350 17 GM PACKET PO SCH (09:00)
[2020-04-18] MEDS: METOPROLOL TARTRATE 25 MG TABLET PO SCH ×2 (09:55→16:51)
[2020-04-18] MEDS: VALPROIC ACID 250 MG/5 ML SYRUP UDCUP PO SCH ×2 (09:55→16:51)
[2020-04-18] MEDS: MULTIVITAMINS WITH MINERALS, THERAPEUTIC TABLET PO SCH (09:55)
[2020-04-18] MEDS: RisperiDONE 0.5 MG TABLET PO SCH ×3 (09:56→16:51)
[2020-04-18] MEDS: PANTOPRAZOLE SODIUM 40 MG DR TABLET PO SCH (09:56)
[2020-04-18] MEDS: MEMANTINE HCL 5 MG TABLET PO SCH ×2 (09:57→16:51)
[2020-04-18] MEDS: INSULIN LISPRO 100 UNITS/ML SQ PRN (11:31)
[2020-04-18 11:36] LABS: GLUCOMETER DEV NAME(LOC) 3E.I 2; GLUCOSE,POINT OF CARE 173 MG/DL (70-110)
[2020-04-18 16:03] VITALS: BP 137/81
[2020-04-18 17:14] LABS: GLUCOMETER DEV NAME(LOC) 3E.I 2; GLUCOSE,POINT OF CARE 124 MG/DL (70-110)
[2020-04-18] MEDS: SIMVASTATIN 20 MG TABLET PO SCH (20:21)
[2020-04-18] MEDS: DONEPEZIL HCL 5 MG TABLET PO SCH (20:21)
[2020-04-19] MEDS: LORazepam 0.5 MG TABLET PO PRN (01:16)
[2020-04-19] MEDS: ZALEPLON 5 MG CAPSULE PO PRN (01:16)
[2020-04-19] MEDS: LEVOTHYROXINE SODIUM 112 MCG TABLET PO SCH (06:48)
[2020-04-19] MEDS: MetFORMIN HCL 500 MG TABLET PO SCH ×2 (06:57→17:30)
[2020-04-19 08:15] VITALS: BP 118/62
[2020-04-19] MEDS: POLYETHYLENE GLYCOL 3350 17 GM PACKET PO SCH (09:00)
[2020-04-19] MEDS: VALPROIC ACID 250 MG/5 ML SYRUP UDCUP PO SCH ×2 (09:05→16:13)
[2020-04-19] MEDS: MEMANTINE HCL 5 MG TABLET PO SCH ×2 (09:05→16:13)
[2020-04-19] MEDS: METOPROLOL TARTRATE 25 MG TABLET PO SCH ×2 (09:05→16:13)
[2020-04-19] MEDS: MULTIVITAMINS WITH MINERALS, THERAPEUTIC TABLET PO SCH (09:06)
[2020-04-19] MEDS: RisperiDONE 0.5 MG TABLET PO SCH ×3 (09:06→16:13)
[2020-04-19] MEDS: PANTOPRAZOLE SODIUM 40 MG DR TABLET PO SCH (09:06)
[2020-04-19] MEDS ORDERED: POLYETHYLENE GLYCOL 3350 17 GM PACKET PO PRN (10:15)
[2020-04-19 10:56] LABS: GLUCOMETER DEV NAME(LOC) 3E.I 2; GLUCOSE,POINT OF CARE 118 MG/DL (70-110)
[2020-04-19 11:38] LABS: GLUCOMETER DEV NAME(LOC) 3E.I 2; GLUCOSE,POINT OF CARE 115 MG/DL (70-110)
[2020-04-19] MEDS: GuaiFENesin/D-METHORPHAN [SUGAR-FREE] 200-20MG/10 ML SYRUP UDCUP PO PRN (12:24)
[2020-04-19] MEDS: INSULIN LISPRO 100 UNITS/ML SQ PRN ×2 (12:44→21:21)
[2020-04-19 16:28] LABS: GLUCOMETER DEV NAME(LOC) 3E.I 2; GLUCOSE,POINT OF CARE 259 MG/DL (70-110)
[2020-04-19 18:02] VITALS: BP 112/74
[2020-04-19] MEDS: DONEPEZIL HCL 5 MG TABLET PO SCH (21:15)
[2020-04-19] MEDS: SIMVASTATIN 20 MG TABLET PO SCH (21:15)
[2020-04-19 21:32] LABS: GLUCOMETER DEV NAME(LOC) 3E.I 2; GLUCOSE,POINT OF CARE 162 MG/DL (70-110)
[2020-04-20] MEDS: LEVOTHYROXINE SODIUM 112 MCG TABLET PO SCH (06:47)
[2020-04-20] MEDS: MetFORMIN HCL 500 MG TABLET PO SCH ×2 (06:48→16:59)
[2020-04-20] MEDS: VALPROIC ACID 250 MG/5 ML SYRUP UDCUP PO SCH ×2 (08:31→16:37)
[2020-04-20] MEDS: RisperiDONE 0.5 MG TABLET PO SCH ×3 (08:32→16:37)
[2020-04-20] MEDS: MEMANTINE HCL 5 MG TABLET PO SCH ×2 (08:32→16:36)
[2020-04-20] MEDS: PANTOPRAZOLE SODIUM 40 MG DR TABLET PO SCH (08:32)
[2020-04-20] MEDS: MULTIVITAMINS WITH MINERALS, THERAPEUTIC TABLET PO SCH (08:32)
[2020-04-20] MEDS: METOPROLOL TARTRATE 25 MG TABLET PO SCH ×2 (08:32→16:36)
[2020-04-20 08:51] VITALS: BP 109/64
[2020-04-20] MEDS: INSULIN LISPRO 100 UNITS/ML SQ PRN ×2 (11:30→21:46)
[2020-04-20 11:47] LABS: GLUCOMETER DEV NAME(LOC) 3E.I 2; GLUCOSE,POINT OF CARE 268 MG/DL (70-110)
[2020-04-20 15:55] LABS: APPEARANCE,URINE CLOUDY (CLEAR); BILIRUBIN,URINE NEGATIVE (NEGATIVE); GLUCOSE, URINE (UA) NEGATIVE (NEGATIVE); KETONES,URINE NEGATIVE (NEGATIVE); LEUKOCYTE ESTERASE ,URINE LARGE (NEGATIVE); OCCULT BLOOD,URINE NEGATIVE (NEGATIVE); PH,URINE 8.5 (5.0-8.0); PROTEIN,URINE NEGATIVE (NEGATIVE); UROBILINOGEN,URINE 0.2 mg/dL (<=1.0)
[2020-04-20 16:00] VITALS: BP 146/76
[2020-04-20 16:02] LABS: BACTERIA,URINE Many /HPF (None Seen); NITRATE,URINE POSITIVE (NEGATIVE); RBC,URINE 0-2 /HPF (0-2); SQUAMOUS EPITHELIAL CELL,UR Few /LPF (None Seen)
[2020-04-20 17:01] LABS: GLUCOMETER DEV NAME(LOC) 3E.I 2; GLUCOSE,POINT OF CARE 107 MG/DL (70-110)
[2020-04-20] MEDS: CIPROFLOXACIN HCL 500 MG TABLET PO SCH (19:26)
[2020-04-20] MEDS: LORazepam 0.5 MG TABLET PO PRN (20:28)
[2020-04-20] MEDS: DONEPEZIL HCL 5 MG TABLET PO SCH (21:31)
[2020-04-20] MEDS: SIMVASTATIN 20 MG TABLET PO SCH (21:31)
[2020-04-20 21:51] LABS: GLUCOMETER DEV NAME(LOC) 3E.I 2; GLUCOSE,POINT OF CARE 278 MG/DL (70-110)
[2020-04-21] MEDS: ZALEPLON 5 MG CAPSULE PO PRN (00:14)
[2020-04-21] MEDS: LORazepam 0.5 MG TABLET PO PRN (00:31)
[2020-04-21 05:21] LABS: GLUCOMETER DEV NAME(LOC) 3E.I 2; GLUCOSE,POINT OF CARE 108 MG/DL (70-110)
[2020-04-21] MEDS: MetFORMIN HCL 500 MG TABLET PO SCH ×2 (06:57→16:54)
[2020-04-21] MEDS: LEVOTHYROXINE SODIUM 112 MCG TABLET PO SCH (06:57)
[2020-04-21 08:47] VITALS: BP 139/78
[2020-04-21] MEDS: PANTOPRAZOLE SODIUM 40 MG DR TABLET PO SCH (09:49)
[2020-04-21] MEDS: VALPROIC ACID 250 MG/5 ML SYRUP UDCUP PO SCH ×2 (09:49→16:49)
[2020-04-21] MEDS: CIPROFLOXACIN HCL 500 MG TABLET PO SCH ×2 (09:50→16:49)
[2020-04-21] MEDS: MULTIVITAMINS WITH MINERALS, THERAPEUTIC TABLET PO SCH (09:50)
[2020-04-21] MEDS: MEMANTINE HCL 5 MG TABLET PO SCH ×2 (09:50→16:51)
[2020-04-21] MEDS: RisperiDONE 0.5 MG TABLET PO SCH ×3 (09:50→16:53)
[2020-04-21] MEDS: METOPROLOL TARTRATE 25 MG TABLET PO SCH ×2 (09:50→16:50)
[2020-04-21 16:07] VITALS: BP 132/82
[2020-04-21] MEDS: INSULIN LISPRO 100 UNITS/ML SQ PRN ×2 (16:46→20:54)
[2020-04-21 16:55] LABS: GLUCOMETER DEV NAME(LOC) 3E.I 2; GLUCOSE,POINT OF CARE 202 MG/DL (70-110)
[2020-04-21] MEDS: DONEPEZIL HCL 5 MG TABLET PO SCH (20:36)
[2020-04-21] MEDS: SIMVASTATIN 20 MG TABLET PO SCH (20:36)
[2020-04-21 20:46] LABS: GLUCOMETER DEV NAME(LOC) 3E.I 2; GLUCOSE,POINT OF CARE 196 MG/DL (70-110)
[2020-04-22 04:29] VITALS: BP 118/67
[2020-04-22] MEDS: RisperiDONE 0.5 MG TABLET PO PRN (04:29)
[2020-04-22] MEDS: LORazepam 0.5 MG TABLET PO PRN ×2 (04:29→21:41)
[2020-04-22 05:49] LABS: GLUCOMETER DEV NAME(LOC) 3E.I 2; GLUCOSE,POINT OF CARE 123 MG/DL (70-110)
[2020-04-22] MEDS: LEVOTHYROXINE SODIUM 112 MCG TABLET PO SCH (06:36)
[2020-04-22] MEDS: MetFORMIN HCL 500 MG TABLET PO SCH ×2 (06:36→17:30)
[2020-04-22 09:15] VITALS: BP 135/95
[2020-04-22] MEDS: MULTIVITAMINS WITH MINERALS, THERAPEUTIC TABLET PO SCH (10:16)
[2020-04-22] MEDS: RisperiDONE 0.5 MG TABLET PO SCH ×3 (10:18→16:48)
[2020-04-22] MEDS: METOPROLOL TARTRATE 25 MG TABLET PO SCH ×2 (10:18→16:49)
[2020-04-22] MEDS: PANTOPRAZOLE SODIUM 40 MG DR TABLET PO SCH (10:19)
[2020-04-22] MEDS: VALPROIC ACID 250 MG/5 ML SYRUP UDCUP PO SCH ×2 (10:19→16:49)
[2020-04-22] MEDS: GuaiFENesin/D-METHORPHAN [SUGAR-FREE] 200-20MG/10 ML SYRUP UDCUP PO PRN ×2 (10:21→19:09)
[2020-04-22] MEDS: CIPROFLOXACIN HCL 500 MG TABLET PO SCH ×2 (10:21→16:49)
[2020-04-22] MEDS: MEMANTINE HCL 5 MG TABLET PO SCH ×2 (10:23→16:49)
[2020-04-22 12:17] LABS: GLUCOMETER DEV NAME(LOC) 3E.I 2; GLUCOSE,POINT OF CARE 123 MG/DL (70-110)
[2020-04-22] MEDS: INSULIN LISPRO 100 UNITS/ML SQ PRN ×3 (12:29→21:48)
[2020-04-22 16:00] VITALS: BP 103/57
[2020-04-22 16:06] LABS: GLUCOMETER DEV NAME(LOC) 3E.I 2; GLUCOSE,POINT OF CARE 243 MG/DL (70-110)
[2020-04-22] MEDS: SIMVASTATIN 20 MG TABLET PO SCH (21:39)
[2020-04-22] MEDS: DONEPEZIL HCL 5 MG TABLET PO SCH (21:39)
[2020-04-22] MEDS: ALBUTEROL SULFATE HFA 90 MCG/PUFF 8 GM INHALER IH PRN (21:53)
[2020-04-23] MEDS: ZALEPLON 5 MG CAPSULE PO PRN (01:20)
[2020-04-23 05:56] LABS: GLUCOMETER DEV NAME(LOC) 3E.I 2; GLUCOSE,POINT OF CARE 124 MG/DL (70-110)
[2020-04-23] MEDS: MetFORMIN HCL 500 MG TABLET PO SCH ×2 (06:43→16:57)
[2020-04-23] MEDS: LEVOTHYROXINE SODIUM 112 MCG TABLET PO SCH (06:43)
[2020-04-23 08:30] VITALS: BP 146/78
[2020-04-23] MEDS: RisperiDONE 0.5 MG TABLET PO SCH ×3 (09:02→16:58)
[2020-04-23] MEDS: METOPROLOL TARTRATE 25 MG TABLET PO SCH ×2 (09:05→16:57)
[2020-04-23] MEDS: CIPROFLOXACIN HCL 500 MG TABLET PO SCH ×2 (09:05→16:58)
[2020-04-23] MEDS: MEMANTINE HCL 5 MG TABLET PO SCH ×2 (09:06→16:58)
[2020-04-23] MEDS: VALPROIC ACID 250 MG/5 ML SYRUP UDCUP PO SCH ×2 (09:09→16:57)
[2020-04-23] MEDS: PANTOPRAZOLE SODIUM 40 MG DR TABLET PO SCH (09:09)
[2020-04-23] MEDS: MULTIVITAMINS WITH MINERALS, THERAPEUTIC TABLET PO SCH (09:10)
[2020-04-23 12:27] LABS: GLUCOMETER DEV NAME(LOC) 3E.I 2; GLUCOSE,POINT OF CARE 179 MG/DL (70-110)
[2020-04-23] MEDS: INSULIN LISPRO 100 UNITS/ML SQ PRN ×2 (12:49→21:11)
[2020-04-23 16:25] VITALS: BP 129/72
[2020-04-23] MEDS: SIMVASTATIN 20 MG TABLET PO SCH (20:25)
[2020-04-23] MEDS: DONEPEZIL HCL 5 MG TABLET PO SCH (20:25)
[2020-04-23] MEDS: LORazepam 0.5 MG TABLET PO PRN (20:27)
[2020-04-23 20:47] LABS: GLUCOMETER DEV NAME(LOC) 3E.I 2; GLUCOSE,POINT OF CARE 88 MG/DL (70-110)
[2020-04-23 20:47] LABS: GLUCOMETER DEV NAME(LOC) 3E.I 2; GLUCOSE,POINT OF CARE 322 MG/DL (70-110)
[2020-04-24 01:20] VITALS: BP 141/76
[2020-04-24] MEDS: LORazepam 0.5 MG TABLET PO PRN ×2 (01:21→21:19)
[2020-04-24] MEDS: ACETAMINOPHEN 325 MG TABLET PO PRN (01:21)
[2020-04-24 05:33] LABS: GLUCOMETER DEV NAME(LOC) 3E.I 2; GLUCOSE,POINT OF CARE 108 MG/DL (70-110)
[2020-04-24] MEDS: MetFORMIN HCL 500 MG TABLET PO SCH ×2 (06:38→17:11)
[2020-04-24] MEDS: LEVOTHYROXINE SODIUM 112 MCG TABLET PO SCH (06:38)
[2020-04-24] MEDS: MEMANTINE HCL 5 MG TABLET PO SCH ×2 (09:07→17:11)
[2020-04-24] MEDS: CIPROFLOXACIN HCL 500 MG TABLET PO SCH ×2 (09:07→17:11)
[2020-04-24] MEDS: RisperiDONE 0.5 MG TABLET PO SCH ×3 (09:07→17:11)
[2020-04-24] MEDS: VALPROIC ACID 250 MG/5 ML SYRUP UDCUP PO SCH ×2 (09:07→17:11)
[2020-04-24] MEDS: METOPROLOL TARTRATE 25 MG TABLET PO SCH ×2 (09:08→17:11)
[2020-04-24] MEDS: MULTIVITAMINS WITH MINERALS, THERAPEUTIC TABLET PO SCH (09:09)
[2020-04-24] MEDS: PANTOPRAZOLE SODIUM 40 MG DR TABLET PO SCH (09:09)
[2020-04-24 10:30] VITALS: BP 127/81
[2020-04-24 12:06] LABS: GLUCOMETER DEV NAME(LOC) 3E.I 2; GLUCOSE,POINT OF CARE 164 MG/DL (70-110)
[2020-04-24] MEDS: INSULIN LISPRO 100 UNITS/ML SQ PRN ×2 (12:20→21:30)
[2020-04-24 16:08] VITALS: BP 132/79
[2020-04-24 17:05] LABS: GLUCOMETER DEV NAME(LOC) 3E.I 2; GLUCOSE,POINT OF CARE 124 MG/DL (70-110)
[2020-04-24 19:12] LABS: COVID AG,FIA SOURCE NASOPHARYNGEAL
[2020-04-24] MEDS: SIMVASTATIN 20 MG TABLET PO SCH (21:19)
[2020-04-24] MEDS: DONEPEZIL HCL 5 MG TABLET PO SCH (21:19)
[2020-04-24] MEDS: ALBUTEROL SULFATE HFA 90 MCG/PUFF 8 GM INHALER IH PRN (21:30)
[2020-04-24 21:40] LABS: GLUCOMETER DEV NAME(LOC) 3E.I 2; GLUCOSE,POINT OF CARE 226 MG/DL (70-110)
[2020-04-25] VITALS (9 sets, daily range): BP systolic 108–136; BP diastolic 62–84
[2020-04-25] MEDS: RisperiDONE 0.5 MG TABLET PO PRN (00:48)
[2020-04-25 05:31] LABS: GLUCOMETER DEV NAME(LOC) 3E.I 2; GLUCOSE,POINT OF CARE 135 MG/DL (70-110)
[2020-04-25] MEDS: LEVOTHYROXINE SODIUM 112 MCG TABLET PO SCH (06:57)
[2020-04-25] MEDS: MetFORMIN HCL 500 MG TABLET PO SCH ×2 (06:57→17:13)
[2020-04-25] MEDS: METOPROLOL TARTRATE 25 MG TABLET PO SCH ×2 (09:41→17:13)
[2020-04-25] MEDS: RisperiDONE 0.5 MG TABLET PO SCH ×3 (09:41→17:13)
[2020-04-25] MEDS: MEMANTINE HCL 5 MG TABLET PO SCH ×2 (09:41→17:13)
[2020-04-25] MEDS: NITROFURANTOIN/NITROFURAN MAC 100 MG CAPSULE [MACROBID] PO SCH ×2 (09:42→17:13)
[2020-04-25] MEDS: VALPROIC ACID 250 MG/5 ML SYRUP UDCUP PO SCH ×2 (09:43→17:13)
[2020-04-25] MEDS: PANTOPRAZOLE SODIUM 40 MG DR TABLET PO SCH (09:43)
[2020-04-25] MEDS: MULTIVITAMINS WITH MINERALS, THERAPEUTIC TABLET PO SCH (09:44)
[2020-04-25] MEDS: INSULIN LISPRO 100 UNITS/ML SQ PRN ×2 (11:31→21:25)
[2020-04-25 11:38] LABS: GLUCOMETER DEV NAME(LOC) 3E.I 2; GLUCOSE,POINT OF CARE 203 MG/DL (70-110)
[2020-04-25 17:49] LABS: GLUCOMETER DEV NAME(LOC) 3E.I 2; GLUCOSE,POINT OF CARE 104 MG/DL (70-110)
[2020-04-25] MEDS: ALBUTEROL SULFATE HFA 90 MCG/PUFF 8 GM INHALER IH PRN (20:27)
[2020-04-25] MEDS: DONEPEZIL HCL 5 MG TABLET PO SCH (21:12)
[2020-04-25] MEDS: SIMVASTATIN 20 MG TABLET PO SCH (21:12)
[2020-04-25 21:39] LABS: GLUCOMETER DEV NAME(LOC) 3E.I 2; GLUCOSE,POINT OF CARE 181 MG/DL (70-110)
[2020-04-25] MEDS ORDERED: ALBUTEROL SULFATE 2.5 MG/0.5 ML NEB SOLUTION NEB ONE (22:00)
[2020-04-25] MEDS ORDERED: 0.9% SODIUM CHLORIDE 5 ML NEB SOLUTION NEB ONE (22:48)
[2020-04-26] VITALS: BP 99/53
[2020-04-26] MEDS ORDERED: SODIUM CHLORIDE 0.9% 1,000 ML IV ONE
[2020-04-26] MEDS ORDERED: ACETAMINOPHEN 500 MG TABLET PO ONE
[2020-04-26 00:10] VITALS: BP 104/59
[2020-04-26 01:08] LABS: BASOPHILS % (AUTO) 0.1 % (0.0-2.0); EOSINOPHILS % (AUTO) 0.1 % (1.0-6.0); HEMATOCRIT 35.9 % (36-46); HEMOGLOBIN 11.8 g/dL (12.0-16.0); LYMPHOCYTES # (AUTO) 0.1 K/uL (1.0-4.8); LYMPHOCYTES % (AUTO) 1.6 % (22.0-44.0); MEAN CORPUSCULAR HEMOGLOBIN 29.1 pg (26.0-34.0); MEAN CORPUSCULAR HGB CONC 32.9 G/dL (31.0-37.0); MEAN CORPUSCULAR VOLUME 89 fL (80-100); MONOCYTES # (AUTO) 0.2 K/uL (0.1-1.0); MONOCYTES % (AUTO) 2.8 % (2.0-9.0); NEUTROPHILS # (AUTO) 8.5 K/uL (1.8-7.7); PLATELET COUNT (AUTO) 225 K/uL (150-450); RED BLOOD CELL COUNT(AUTO) 4.05 MIL/uL (4.00-5.20); RED CELL DISTRIBUTION WIDTH 18.3 % (11.5-14.5)
[2020-04-26 01:10] LABS: NEUTROPHILS % (AUTO) 95.4 % (40.0-70.0)
[2020-04-26 01:17] LABS: ANION GAP 8 mmol/L (8-16); CALCIUM, TOTAL 8.5 mg/dL (8.8-10.5); CARBON DIOXIDE 25 mmol/L (22-29); CHLORIDE 99 mmol/L (98-107); CREATININE 1.28 mg/dL (0.60-1.30); GLOMERULAR FILTR. RATE CALC 40 mL/min (>60); GLUCOSE,RANDOM 230 mg/dL (70-110); POTASSIUM 4.4 mmol/L (3.5-5.1); SODIUM SERUM 132 mmol/L (136-145); UREA NITROGEN, BLOOD 26 mg/dL (7-18)
[2020-04-26 01:26] LABS: D-DIMER 1.61 mg/L FEU (0.00-0.50); INR 1.1 (0.9-1.1); PROTHROMBIN TIME 11.6 SEC (9.4-11.6)
[2020-04-26 01:32] LABS: ALANINE AMINOTRANSFERASE 22 U/L (12-78); ALBUMIN 3.2 g/dL (3.4-5.0); ALKALINE PHOSPHATASE 83 U/L (46-116); ASPARTATE AMINOTRANSFERASE 29 U/L (15-37); B-TYPE NATRIURETIC PEPTIDE 691 pg/mL (0-100); BILIRUBIN,TOTAL 0.4 mg/dL (0.1-1.0); C-REACTIVE PROTEIN QUANT 2.56 mg/dL (0.00-0.30); CREATINE KINASE, TOTAL ONLY 42 U/L (26-192); LIPASE 41 U/L (73-393); THYROID STIMULATING HORMONE 4.63 uIU/mL (0.36-3.74)
[2020-04-26 01:45] LABS: LACTIC ACID 3.7 mmol/L (0.4-2.0)
[2020-04-26 02:11] LABS: ERYTHROCYTE SEDIMENTATION RATE 11 MM/HR (0-20)
[2020-04-26] MEDS ORDERED: RisperiDONE 0.5 MG TABLET PO SCH (09:00)
== END 2020-04-26 00:14 | disposition short-term general hospital (02) | DRG 885 ==
LOC: 3EX 03-16 01:30
PROVIDERS: ADMIT Psychiatry & Neurology Psychiatry; ATTEND Psychiatry & Neurology Psychiatry
DX: F25.0 Schizoaffective disorder, bipolar type (principal); E11.65 Type 2 diabetes mellitus with hyperglycemia; F03.91 Unspecified dementia, unspecified severity, with behavioral disturbance; N39.0 Urinary tract infection, site not specified; I10 Essential (primary) hypertension; E78.5 Hyperlipidemia, unspecified; F41.9 Anxiety disorder, unspecified; K62.3 Rectal prolapse; I48.91 Unspecified atrial fibrillation; K21.9 Gastro-esophageal reflux disease without esophagitis; Z20.828 Contact with and (suspected) exposure to other viral communicable diseases; M19.90 Unspecified osteoarthritis, unspecified site; B96.20 Unspecified Escherichia coli [E. coli] as the cause of diseases classified elsewhere; Z55.9 Problems related to education and literacy, unspecified; Z59.9 Problem related to housing and economic circumstances, unspecified; Z91.14 Patient's other noncompliance with medication regimen; Z28.21 Immunization not carried out because of patient refusal
CPT/HCPCS: 83036; 83605; 83735; 84443; 85379; 85651; 86140; 87040; 87081; 87086; 87426; 93005; G0378; J3535; J7030; 36415-L1; 36415-TC; 71045-TC; 71046; 71046-TC; 80061-TC; J7613